=== PATIENT | male | born 1960 | race Caucasian/White ===

== ENCOUNTER 2024-10-03 18:28 | Emergency (ER) | payer SELFPAY ==
[2024-10-03 19:20] LABS: Absolute Basophils 0.1 K/uL (0-0.5); Absolute Monocytes 0.2 K/uL (0.1-1.3); Absolute Neutrophil 1.9 K/uL (1.8-8.0); Basophils % 1.7 % (0-1.3); Eosinophils % 1.4 % (0-4.4); Hematocrit 43.2 % (39.6-49.0); Hemoglobin 14.3 g/dL (13.6-17.9); Lymphocytes % 31.9 % (15.3-44.8); MCH 29.3 pg (27.0-35.0); MCHC 33.2 g/dL (32.0-36.0); MCV 88.2 fL (80-100); MPV 8.5 fL (7.6-11.3); Nucleated Red Blood Cells % 0.1 % (0-0); Platelets 124 thou/uL (152-406); Red Cell Distribution Width 15.7 % (12.1-15.2)
[2024-10-03 19:28] LABS: PT Prothrombin Time 12.5 SECONDS (9.4-12.5); Protime INR 1.12
[2024-10-03] MEDS ORDERED: LEVALBUTEROL 1.25 MG/3 ML NEB ONE (19:29)
[2024-10-03] MEDS ORDERED: levoFLOXacin 250 MG TAB ONE (19:29)
[2024-10-03] MEDS ORDERED: FAMOTIDINE 20 MG/2 ML VIAL IV ONE (19:29)
[2024-10-03] MEDS ORDERED: IPRATROPIUM BROM 0.5MG/2.5ML ONE (19:29)
[2024-10-03] MEDS ORDERED: METHYLPREDNISOLONE 125 MG INJ ONE (19:29)
[2024-10-03] MEDS ORDERED: NA CHLORIDE 0.9% 500 ML ONE (19:30)
[2024-10-03] MEDS ORDERED: NA CHLORIDE 0.9% 1,000 ML ONE (19:30)
--- NOTE | 2024-10-03 19:37 | RAD REPORT ---
EXAMINATION: ONE VIEW CHEST XR CLINICAL INDICATION: COPD TECHNIQUE: Frontal chest projection is submitted. Examination is limited by patient positioning and t echnique. COMPARISON: No prior exam. FINDINGS: COPD is present. 2-3 cm density medial apex on the right. The heart is normal in size. No displaced f ractures identified. IMPRESSION: 2-3 cm rounded density medial right apex concerning for mass. CT chest recommended.
[2024-10-03 19:41] LABS: Albumin 3.1 g/dL (3.4-5.0); Albumin/Globulin Ratio 0.6 (1.1-1.8); Bilirubin Direct 0.4 mg/dL (0-0.2); Bilirubin Indirect, Calculated 0.4 mg/dL (0.2-0.8); Bilirubin Total 0.8 mg/dL (0.2-1.0); Globulin 5.5 g/dL (2.3-3.5); Magnesium 2.4 mg/dL (1.6-2.4); Protein, Total 8.6 g/dL (6.4-8.2); Troponin High Sensitivity 8.7 pg/mL (<58.9)
[2024-10-03] MEDS ORDERED: LORazepam 2 MG/ML VIAL ONE (20:43)
--- NOTE | 2024-10-03 21:24 | RAD REPORT ---
EXAM: CT CHEST WITH CONTRAST CLINICAL INDICATION: abnormal CXR;Dyspnea TECHNIQUE: Routine CT scan of the chest with intravenous contrast. One or more of the following dose reduction techniques were used: Automated exposure control, adjustment of the mA and/or kV according to patient size, and/or iterative reconstruction. Unless otherwise specified, incidental fi ndings do not require dedicated imaging follow-up. COMPARISON: Plain radiograph same date FINDINGS: Moderate diffuse thyroid goiter. LUNGS: Irregular mass lesion in the medial right upper lobe noted measuring 5.2 x 3.7 cm. This extend s superiorly to the right apex where 15 mm component is present of the mass. Elsewhere mild COPD is present. Tiny nodules are seen subpleural location both lower lobes. PLEURA: No pleural effusion. No pneumothorax. MEDIASTINUM AND LYMPH NODES: No mediastinal mass or fluid collection. Normal size mediastinal, hilar, and axillary lymph nodes. OSSEOUS STRUCTURES AND CHEST WALL: Intact. UPPER ABDOMEN: 25 mm left adrenal mass. This is indeterminant. Moderate right hydronephrosis versus extrarenal pelvis. 19 mm cyst suspected in the liver. IMPRESSION: Irregular mass lesion medial right upper lobe measuring 5.2 cm compatible with neoplasm. Indeterminate left adrenal mass, adenoma versus metastasis. Moderate right hydronephrosis versus extrarenal pelvis. Prominent diffuse thyroid goiter.
--- NOTE | 2024-10-03 21:49 | RAD REPORT ---
EXAMINATION: CT ABDOMEN AND PELVIS WITH CONTRAST CLINICAL INDICATION: ABNORMAL CXR TECHNIQUE: CT abdomen and pelvis was performed, after the administration of IV contrast, as per [facility]. Axial, sagittal and coronal reconstructions were obtained. One or more of the following dose reduction techniques were used: Automated exposure control, adjustment of the mA and k V according to patient size, and iterative reconstruction. Unless otherwise specified, incidental findings do not require dedicated imaging follow-up. COMPARISON: No prior exam. FINDINGS: LOWER CHEST: The visualized lung bases are clear. LIVER: Small benign cyst is seen in the right lobe anteriorly. Grossly unremarkable gallbladder. SPLEEN: Normal size. No focal lesion. PANCREAS: No mass, ductal dilation, or pratik-pancreatic fluid. ADRENALS: 25 mm left adrenal mass. This is indeterminate. KIDNEYS: Large parapelvic cyst right kidney measuring 7.5 cm. No hydronephrosis. Additional right mariola al cyst superiorly measuring 4 cm. Symmetric contrast excretion by both kidneys into normal size ureters. GASTROINTESTINAL TRACT: No evidence of free air, significant intra-abdominal free fluid, bowel obstru ction or abscess. APPENDIX: Normal appendix. LYMPH NODES: No lymphadenopathy. MUSCULOSKELETAL: No acute or suspicious osseous abnormality. ADDITIONAL FINDINGS: Small fat-containing bilateral internal hernias. IMPRESSION: 25 mm indeterminate left adrenal mass. Follow-up nonemergent MRI adrenal protocol recommended. Large right parapelvic cyst. No hydronephrosis is present.
--- NOTE | 2024-10-03 22:08 | ER ---
Nurse's Notes [facility] Name: Claudio Adames II Age: 63 yrs Sex: Male : 1960 Arrival Date: 10/03/2024 Time: 18:28 Bed 3 Private MD: Diagnosis: Dyspnea, new pulmonary neoplasm, new renal neoplasm, hypothyroidism Presentation: 10/03 18:41 Chief complaint: EMS states: Toned out for dyspnea x 9 days. Coronavirus screen: Client jl7 presents with at least one sign or symptom that may indicate coronavirus-19. Ebola Screen: No symptoms or risks identified at this time. Initial Sepsis Screen: Does the patient meet any 2 criteria? No. Patient's initial sepsis screen is negative. Does the patient have a suspected source of infection? No. Patient's initial sepsis screen is negative. Risk Assessment: Do you want to hurt yourself or someone else? Patient reports no desire to harm self or others. Onset of symptoms is unknown. Care prior to arrival: None. 18:41 Method Of Arrival: EMS: [facility] 18:41 Acuity: ANTHONY 3 jl7 Triage Assessment: 18:43 General: Appears in no apparent distress. uncomfortable, Behavior is calm, cooperative, jl7 appropriate for age. Pain: Denies pain. Neuro: No deficits noted. Cardiovascular: Patient's skin is warm and dry. Respiratory: Reports shortness of breath at rest cough that is Airway is patent Respiratory effort is even, labored, Respiratory pattern is regular, symmetrical, Onset: The symptoms/episode began/occurred gradually, the patient has mild shortness of breath. Historical: - Allergies: 18:43 No Known Allergies; jl7 - Home Meds: 18:43 None [Active]; jl7 - PMHx: 18:43 None; jl7 - PSHx: 18:43 None; jl7 - Immunization history:: Adult Immunizations unknown. - Infectious Disease History:: Denies. - Social history:: Smoking status: Patient reports the use of cigarette tobacco products, smokes two packs cigarettes per day. Screenin:02 [facility] ED Fall Risk Assessment (Adult) History of falling in the last 3 months, mt4 including since admission No falls in past 3 months (0 pts) Confusion or Disorientation No (0 pts) Intoxicated or Sedated No (0 pts) Impaired Gait No (0 pts) Mobility Assist Device Used No (0 pt) Altered Elimination Yes (1 pt) Score/Fall Risk Level 0 - 2 = Low Risk. Abuse screen: Denies injuries from another. Nutritional screening: No deficits noted. Tuberculosis screening: No symptoms or risk factors identified. Exposure risk/Travel Screening: None identified. Assessment: 21:02 General: Appears in no apparent distress. comfortable, Behavior is calm, cooperative, mt4 appropriate for age. Pain: Complains of pain in back Pain currently is 6 out of 10 on a pain scale. Quality of pain is described as aching, sharp, Is intermittent. Neuro: Level of Consciousness is Oriented to [employer] are equal bilaterally Moves all extremities. Speech is normal, Facial symmetry appears normal. Cardiovascular: Rhythm is regular. Cardiovascular: Capillary refill < 3 seconds. Respiratory: Airway is patent Respiratory effort is even, Respiratory pattern is tachypnea Breath sounds are diminished bilaterally. GI: Abdomen is non-distended. : Denies burning with urination. Musculoskeletal: Capillary refill < 3 seconds, Range of motion: intact in all extremities. 10/04 01:44 Reassessment: report given to Meeta at [facility]. mt4 02:23 General: Appears in no apparent distress. comfortable, Behavior is calm, cooperative, mt4 appropriate for age. Respiratory: Airway is patent Respiratory effort is even, unlabored, Respiratory pattern is regular. Vital Signs: 10/03 18:41 BP 152 / 81; Pulse 73; Resp 20; Temp 97.9; Pulse Ox 97% on R/A; Weight 62.14 kg; Height jl7 5 ft. 6 in. ; Pain 0/10; 19:15 BP 122 / 70; Pulse 66; Resp 18; Temp 96.6(T); Pulse Ox 98% on R/A; Height 6 ft. 0 in. ; mt4 20:00 BP 148 / 77; Pulse 65; Resp 16 S; Pulse Ox 99% ; mt4 22:22 BP 108 / 73; Pulse 74; Resp 20; Pulse Ox 94% on R/A; mt4 23:00 BP 104 / 71; Pulse 74; Resp 17; Pulse Ox 95% ; mt4 10/04 00:30 BP 110 / 73; Pulse 95; Resp 16; Pulse Ox 95% on R/A; mt4 02:00 BP 149 / 84; Pulse 57; Resp 16; Pulse Ox 96% on R/A; mt4 12 18:41 Body Mass Index 22.11 (62.14 kg, 182.88 cm) jl7 12 18:41 Pain Scale: Adult jl7 Riesel Coma Score: 10/03 21:02 Eye Response: spontaneous(4). Motor Response: obeys commands(6). Verbal Response: mt4 oriented(5). Total: 15. 12 02:23 Eye Response: spontaneous(4). Motor Response: obeys commands(6). Verbal Response: mt4 oriented(5). Total: 15. ED Course: 12 18:33 Patient arrived in ED. bp 18:33 Greg Reynoso MD is Attending Physician. faby 18:43 Triage completed. jl7 18:43 Arm band placed on right wrist. jl7 18:52 Initial lab(s) drawn, by me, sent to lab. First set of blood cultures drawn by oh. jl7 19:01 Rehan House RN is Primary Nurse. bp 19:02 Attending Physician role handed off by Greg Reynoso MD sp3 19:02 Jevon Walker MD is Attending Physician. sp3 19:02 Inserted saline lock: 20 gauge in right antecubital area, using aseptic technique. jl7 Blood collected. Flushed with 10 mL NS. 19:02 Second set of blood cultures drawn EKG done, by ED staff, reviewed by Jevon Walker MD. jl7 19:12 Primary Nurse role handed off by Rehan House RN jl7 19:31 XRAY Chest (1 view) In Process Unspecified. EDMS 19:59 Bladimir Brito, RN is Primary Nurse. mt4 21:02 No apparent distress. Resting quietly. Awaiting CT Scan. mt4 21:02 Patient has correct armband on for positive identification. Call light in reach. Side mt4 rails up X 1. Door closed. Warm blanket given. Pillow given. Verbal reassurance given. Assisted with urinal. 21:02 No provider procedures requiring assistance completed. Patient maintains SpO2 mt4 saturation greater than 95% on room air. 21:19 Chest Abdomen Pelvis W Cont In Process Unspecified. EDMS 21:40 Abdomen In Process Unspecified. EDMS 22:06 Abbie Edmondson MD is Hospitalizing Provider. sp3 23:26 called to initiate transfer to [facility] spoke with Keivn. vk 10/04 00:02 per Kevin at [facility] Transfer [facility] patient is accepted currently waiting on room to be vk cleaned as soon as it is cleaned he will call with MOT. 00:54 called [facility] transfer center spoke with Migdalia regarding room she stated they have started vk cleaning room and will call as soon as it is done. 02:23 Provided Education on: on transfer . mt4 02:23 Assisted with urinal. mt4 02:23 Patient transferred, IV remains in place. mt4 Administered Medications: 10/03 19:57 Drug: MethylPrednisoLONE IVP 125 mg IVP once Route: IVP; Site: right antecubital; mt4 21:01 Follow up: Response: No adverse reaction mt4 19:57 Drug: Levalbuterol Inhalation 3.75 mg Inhalation once Route: Inhalation; mt4 21:01 Follow up: Response: No adverse reaction mt4 19:57 Drug: Ipratropium Inhalation Aerosol 0.5 mg Inhalation once Route: Inhalation; mt4 21:00 Follow up: Response: No adverse reaction mt4 19:57 Drug: LevOfloxacin PO 500 mg PO once Route: PO; mt4 21:00 Follow up: Response: No adverse reaction mt4 19:57 Drug: Famotidine IVP 20 mg IVP once; dilute with 10 mL 0.9% NaCl; give over 2 minutes mt4 Route: IVP; Site: right antecubital; 21:00 Follow up: Response: No adverse reaction mt4 19:58 Drug: NS 0.9% IV 500 ml 500 ml IV at 1 bolus once; to be given as a bolus over 30 mt4 minutes Volume: 500 ml; Route: IV; Rate: 1 bolus; Site: right antecubital; 21:01 Follow up: Response: No adverse reaction; IV Status: Completed infusion; IV Intake: mt4 500ml 19:58 Drug: NS 0.9% IV 1000 ml IV at 125 ml/hr continuous Route: IV; Rate: 125 ml/hr; Site: mt4 right antecubital; 21:01 Follow up: Response: No adverse reaction mt4 10/04 00:41 Follow up: IV Status: Infusion continued mt4 10/03 20:45 Drug: Ativan IVP 1 mg IVP once Route: IVP; Site: right antecubital; dd2 21:56 Follow up: Response: No adverse reaction mt4 Medication: 21:02 VIS not applicable for this client. mt4 Intake: 21:01 IV: 500ml; Total: 500ml. mt4 Outcome: 22:07 Decision to Hospitalize by Provider. sp3 23:30 ER care complete, transfer ordered by sp3 10/04 02:18 Transferred to [facility] [facility] Condition: stable Instructed on the need for admit, Demonstrated understanding of instructions, 02:24 Patient left the ED. mt4 Signatures: Dispatcher [employer] EDMS Greg Reynoso MD MD cha Leal, Jahala, RN RN jl7 Rehan House, RN RN Jevon Sy MD MD sp3 Brooke Becerra Molinec, RN RN mt4 CAROL MEJIAS RN RN dd2 Corrections: (The following items were deleted from the chart) 10/03 21:19 21:14 In radiology for Thorax W/ Con+CT.RAD.BRZ. EDMS EDMS
--- NOTE | 2024-10-03 22:08 | EDPHYS ---
Physician Documentation [facility] Name: Claudio Adames II Age: 63 yrs Sex: Male : 1960 Arrival Date: 10/03/2024 Time: 18:28 Bed 3 Private MD: ED Physician Jevon Walker HPI: 10/03 19:17 This 63 yrs old Male presents to ER via EMS with complaints of Shortness Of Breath. sp3 19:17 63-year-old male with no diagnosed medical problems who has not seen a physician in sp3 greater than 20 years now presents to the ED with chief complaint shortness of breath and chest pain spanning 2 weeks worsening today. Patient states he takes no medications has had no major surgeries. He denies any fever, cough, headache, neck pain, abdominal pain, nausea, vomiting, diarrhea, syncope, near syncope, neurological deficits or symptoms, trauma, travel history, known sick contacts, or any other signs or symptoms on ROS at this time.. Historical: - Allergies: 18:43 No Known Allergies; jl7 - Home Meds: 18:43 None [Active]; jl7 - PMHx: 18:43 None; jl7 - PSHx: 18:43 None; jl7 - Immunization history:: Adult Immunizations unknown. - Infectious Disease History:: Denies. - Social history:: Smoking status: Patient reports the use of cigarette tobacco products, smokes two packs cigarettes per day. ROS: 19:18 Constitutional: Negative for fever, chills, and weight loss, Eyes: Negative for injury, sp3 pain, redness, and discharge, ENT: Negative for injury, pain, and discharge, Neck: Negative for injury, pain, and swelling, Abdomen/GI: Negative for abdominal pain, nausea, vomiting, diarrhea, and constipation, Back: Negative for injury and pain, MS/Extremity: Negative for injury and deformity, Skin: Negative for injury, rash, and discoloration, Neuro: Negative for headache, weakness, numbness, tingling, and seizure, Psych: Negative for depression, anxiety, suicide ideation, homicidal ideation, and hallucinations, Allergy/Immunology: Negative for hives, rash, and allergies, Endocrine: Negative for neck swelling, polydipsia, polyuria, polyphagia, and marked weight changes, Hematologic/Lymphatic: Negative for swollen nodes, abnormal bleeding, and unusual bruising, 19:18 All other systems are negative, Exam: 19:18 Constitutional: This is a well developed, well nourished patient who is awake, alert, sp3 and in no acute distress. Head/Face: Normocephalic, atraumatic. Eyes: Pupils equal round and reactive to light, extra-ocular motions intact. Lids and lashes normal. Conjunctiva and sclera are non-icteric and not injected. Cornea within normal limits. Periorbital areas with no swelling, redness, or edema. ENT: Nares patent. No nasal discharge, no septal abnormalities noted. External auditory canals are clear. Oropharynx with no redness, swelling, or masses, exudates, or evidence of obstruction, uvula midline. Mucous membranes moist. Neck: Trachea midline, no thyromegaly or masses palpated, and no cervical lymphadenopathy. Supple, full range of motion without nuchal rigidity, or vertebral point tenderness. No Meningismus. Abdomen/GI: Soft, non-tender, with normal bowel sounds. No distension or tympany. No guarding or rebound. No evidence of tenderness throughout. Back: No spinal tenderness. No costovertebral tenderness. Full range of motion. Skin: Warm, dry with normal turgor. Normal color with no rashes, no lesions, and no evidence of cellulitis. MS/ Extremity: Pulses equal, no cyanosis. Neurovascular intact. Full, normal range of motion. Neuro: Awake and alert, GCS 15, oriented to person, place, time, and situation. Cranial nerves II-XII grossly intact. Motor strength 5/5 in all extremities. Sensory grossly intact. Cerebellar exam normal. Normal gait. Psych: Awake, alert, with orientation to person, place and time. Behavior, mood, and affect are within normal limits. 19:18 ECG was reviewed by the Attending Physician. EKG demonstrates normal sinus rhythm at 70 bpm with normal intervals, normal QRS, normal axis, nonspecific diffuse ST/T changes without evidence of acute ischemia. Vital Signs: 18:41 BP 152 / 81; Pulse 73; Resp 20; Temp 97.9; Pulse Ox 97% on R/A; Weight 62.14 kg; Height jl7 5 ft. 6 in. ; Pain 0/10; 19:15 BP 122 / 70; Pulse 66; Resp 18; Temp 96.6(T); Pulse Ox 98% on R/A; Height 6 ft. 0 in. ; mt4 20:00 BP 148 / 77; Pulse 65; Resp 16 S; Pulse Ox 99% ; mt4 22:22 BP 108 / 73; Pulse 74; Resp 20; Pulse Ox 94% on R/A; mt4 23:00 BP 104 / 71; Pulse 74; Resp 17; Pulse Ox 95% ; mt4 12 00:30 BP 110 / 73; Pulse 95; Resp 16; Pulse Ox 95% on R/A; mt4 02:00 BP 149 / 84; Pulse 57; Resp 16; Pulse Ox 96% on R/A; mt4 10/03 18:41 Body Mass Index 22.11 (62.14 kg, 182.88 cm) [facility] 10/03 18:41 Pain Scale: Adult [facility] Heri Coma Score: 10/03 21:02 Eye Response: spontaneous(4). Motor Response: obeys commands(6). Verbal Response: mt4 oriented(5). Total: 15. 12 02:23 Eye Response: spontaneous(4). Motor Response: obeys commands(6). Verbal Response: mt4 oriented(5). Total: 15. MDM: 10/03 18:33 Medical Screening Exam initiated faby 19:19 Data reviewed: vital signs, nurses notes, lab test result(s), EKG, radiologic studies. [facility] ED course: 63-year-old male with no known past medical history now presents with chest pain and shortness of breath. Differential diagnosis includes acute coronary syndrome, undiagnosed COPD, pneumonia, bronchitis, other pulmonary pathology, metabolic disturbance, among others. Workup included chest x-ray, EKG general labs and probable 23-hour observation given known history and ongoing symptoms.. 22:06 ED course: Patient with large lung mass consistent with neoplasm as well as left renal [facility] mass. TSH at 100. Will admit patient for cardiac evaluation and oncology referral.. 23:30 ED course: Patient now being transferred due to no oncology service available at this [address] Will transfer to [facility] for further consultation along with pulmonary.. 23:55 ED course: Discussed with medicine inpatient team at [facility] who graciously [facility] accepted this patient under observation status with further intervention as needed.. 10/03 18:36 Order name: Basic Metabolic Panel; Complete Time: 20:56 [facility] 10/03 18:36 Order name: CBC with Diff; Complete Time: 19:46 [facility] 10/03 18:36 Order name: LFT's; Complete Time: 20:56 [facility] 10/03 18:36 Order name: Magnesium; Complete Time: 20:56 [facility] 10/03 18:36 Order name: NT PRO-BNP; Complete Time: 20:56 [facility] 10/03 18:36 Order name: PT-INR; Complete Time: 19:46 [facility] 10/03 18:36 Order name: Troponin HS; Complete Time: 20:56 [facility] 10/03 18:36 Order name: Blood Culture Adult (2) [facility] 10/03 18:36 Order name: Lactate w/ 2H reflex if indic.; Complete Time: 20:56 [facility] 10/03 20:06 Order name: Thyroid Stimulating Hormone; Complete Time: 20:56 [facility] 10/03 20:42 Order name: T4 Free; Complete Time: 20:56 [facility] 10/03 18:36 Order name: XRAY Chest (1 view); Complete Time: 19:46 [facility] 10/03 21:19 Order name: Chest Abdomen Pelvis W Cont; Complete Time: 21:27 [facility] 10/03 21:40 Order name: Abdomen ; Complete Time: 22:05 [facility] 10/03 18:36 Order name: EKG; Complete Time: 18:36 [facility] 10/03 18:36 Order name: Cardiac monitoring; Complete Time: 19:06 [facility] 10/03 18:36 Order name: EKG - Nurse/Tech; Complete Time: 19:06 [facility] 10/03 18:36 Order name: IV Saline Lock; Complete Time: 19:06 [facility] 10/03 18:36 Order name: Labs collected and sent; Complete Time: 19:06 [facility] 10/03 18:36 Order name: O2 Per Protocol; Complete Time: 19:06 [facility] 10/03 18:36 Order name: O2 Sat Monitoring; Complete Time: 19:06 [facility] Administered Medications: 19:57 Drug: MethylPrednisoLONE IVP 125 mg IVP once Route: IVP; Site: right antecubital; mt4 21:01 Follow up: Response: No adverse reaction mt4 19:57 Drug: Levalbuterol Inhalation 3.75 mg Inhalation once Route: Inhalation; mt4 21:01 Follow up: Response: No adverse reaction mt4 19:57 Drug: Ipratropium Inhalation Aerosol 0.5 mg Inhalation once Route: Inhalation; mt4 21:00 Follow up: Response: No adverse reaction mt4 19:57 Drug: LevOfloxacin PO 500 mg PO once Route: PO; mt4 21:00 Follow up: Response: No adverse reaction mt4 19:57 Drug: Famotidine IVP 20 mg IVP once; dilute with 10 mL 0.9% NaCl; give over 2 minutes mt4 Route: IVP; Site: right antecubital; 21:00 Follow up: Response: No adverse reaction mt4 19:58 Drug: NS 0.9% IV 500 ml 500 ml IV at 1 bolus once; to be given as a bolus over 30 mt4 minutes Volume: 500 ml; Route: IV; Rate: 1 bolus; Site: right antecubital; 21:01 Follow up: Response: No adverse reaction; IV Status: Completed infusion; IV Intake: mt4 500ml 19:58 Drug: NS 0.9% IV 1000 ml IV at 125 ml/hr continuous Route: IV; Rate: 125 ml/hr; Site: mt4 right antecubital; 21:01 Follow up: Response: No adverse reaction mt4 12 00:41 Follow up: IV Status: Infusion continued mt4 10/03 20:45 Drug: Ativan IVP 1 mg IVP once Route: IVP; Site: right antecubital; dd2 21:56 Follow up: Response: No adverse reaction mt4 Disposition Summary: 10/03/24 23:30 Transfer Ordered Notes: Transfer Location: [facility] sp3 Reason: Higher level of care sp3 Condition: Stable(10/03/24 23:30) sp3 Problem: new(10/03/24 23:30) sp3 Symptoms: have worsened(10/03/24 23:30) sp3 [facility] mt4 Diagnosis - Dyspnea, new pulmonary neoplasm, new renal neoplasm, hypothyroidism sp3 Forms: - Medication Reconciliation Form sp3 - SBAR form sp3 Signatures: Dispatcher [employer] Greg White MD MD cha Leal, Jahala, RN RN jl7 Rachel Kim RN RN lg3 Jevon Walker MD MD sp3 Bladimir Brito, RN RN mt4 CAROL MEJIAS RN RN dd2 Corrections: (The following items were deleted from the chart) 18:36 18:36 BASIC METABOLIC PANEL+C.LAB.BRZ ordered. EDMS EDMS 18:36 18:36 CBC+H.LAB.BRZ ordered. EDMS EDMS 18:36 18:36 HEPATIC FUNCTION+C.LAB.BRZ ordered. EDMS EDMS 18:36 18:36 MAGNESIUM+C.LAB.BRZ ordered. EDMS EDMS 18:36 18:36 PROBNP+C.LAB.BRZ ordered. EDMS EDMS 18:36 18:36 PROTIME (+INR)+COAG.LAB.BRZ ordered. EDMS EDMS 18:36 18:36 Troponin High Sensitivity+C.LAB.BRZ ordered. EDMS EDMS 18:36 18:36 BLOOD CULTURE*+BA.LAB.BRZ ordered. EDMS EDMS 18:36 18:36 LACTATE+C.LAB.BRZ ordered. EDMS EDMS 20:05 18:55 THYROID STIMULAT HORMONE+C.LAB.BRZ ordered. EDMS EDMS 21:18 21:16 Abdomen Pelvis W Con+CT.RAD.BRZ ordered. EDMS EDMS 21:19 19:48 Thorax W/ Con+CT.RAD.BRZ ordered. EDMS EDMS 22:22 22:07 Telemetry/MedSurg (Inpatient) sp3 lg3 22:22 22:07 sp3 lg3 23:14 22:07 Inpatient Admission sp3 sp3 23:14 22:07 Abbie Edmondson sp3 sp3 23:14 22:07 Stable sp3 sp3 23:24 22:07 new sp3 lg3 23:24 22:07 have worsened sp3 lg3 23:24 22:07 Standard sp3 lg3 23:24 22:07 Dyspnea, chest pain, new neoplasm diagnosis, lung mass sp3 lg3 23:24 22:22 [facility] ER HOLD lg3 lg3 23:24 22:22 ERHOLD- lg3 lg3 10/04 02:24 12 23:[address] [facility] sp3 mt4
[2024-10-04 04:11] VITALS: TEMP 96.6
[2024-10-04 04:21] VITALS: BP 149/84; O2SAT 96
== END 2024-10-04 02:24 | disposition short-term general hospital (02) ==
LOC: ER 18:28
DX: C34.90 Malignant neoplasm of unspecified part of unspecified bronchus or lung (principal); C64.2 Malignant neoplasm of left kidney, except renal pelvis; E03.9 Hypothyroidism, unspecified
CPT/HCPCS: 36415; 71045; 71260; 74177; 80048; 80076; 83605; 83735; 83880; 84439; 84443; 84484; 85025; 85610; 87040; 96361; 96374; 96375; 99285; J2919; J7030; J7040; J7614; J7644

== ENCOUNTER 2024-10-05 22:52 | Inpatient (IN) | payer OTHER, SELFPAY ==
[2024-10-05 23:47] LABS: Absolute Lymphocytes (CBC) 1.2 K/uL (0.7-4.9); Absolute Monocytes 0.3 K/uL (0.1-1.3); Absolute Neutrophil 3.6 K/uL (1.8-8.0); Basophils % 0.4 % (0-1.3); Eosinophils % 0.5 % (0-4.4); Hemoglobin 13.2 g/dL (13.6-17.9); MCH 28.9 pg (27.0-35.0); MCHC 32.2 g/dL (32.0-36.0); MCV 89.8 fL (80-100); MPV 8.4 fL (7.6-11.3); Monocytes % 5.1 % (3.3-12.3); Platelets 153 thou/uL (152-406); RBC Red Blood Cell Count 4.57 M/uL (4.33-5.43); Red Cell Distribution Width 15.9 % (12.1-15.2)
[2024-10-05 23:50] LABS: PT Prothrombin Time 13.1 SECONDS (9.4-12.5); Protime INR 1.18
[2024-10-05] MEDS ORDERED: METHYLPREDNISOLONE 125 MG INJ ONE (23:58)
[2024-10-05] MEDS ORDERED: ONDANSETRON 4 MG/2 ML VIAL ONE (23:58)
[2024-10-05] MEDS ORDERED: ALBUTEROL 2.5 MG/3 ML NEB SOL ONE (23:58)
[2024-10-05] MEDS ORDERED: METOCLOPRAMIDE 10 MG/2mL INJ ONE (23:58)
[2024-10-05] MEDS ORDERED: MORPHINE 4 MG/ML SYR ONE (23:59)
[2024-10-06 00:13] LABS: Albumin/Globulin Ratio 0.7 (1.1-1.8); Anion Gap 8.3 mEq/L (5.0-15.0); Bilirubin Direct 0.2 mg/dL (0-0.2); Bilirubin Indirect, Calculated 0.5 mg/dL (0.2-0.8); Bilirubin Total 0.7 mg/dL (0.2-1.0); Globulin 4.6 g/dL (2.3-3.5); Potassium 3.3 mEq/L (3.5-5.1); Protein, Total 7.6 g/dL (6.4-8.2); Troponin High Sensitivity 47.2 pg/mL (<58.9)
--- NOTE | 2024-10-06 03:48 | ER ---
Nurse's Notes [facility] Name: Claudio Adames II Age: 63 yrs Sex: Male : 1960 Arrival Date: 10/05/2024 Time: 22:52 Bed 6 Private MD: Diagnosis: COPD/ Chronic obstructive pulmonary disease with (acute) exacerbation Presentation: 10/05 22:57 Chief complaint: EMS states: PT CALLED C/O SHORTNESS OF BREATH. PT RECENTLY TRANSFERRED dd2 TO [facility] FOR A NEWLY DX OF LUNG CANCER AND LEFT AMA REFUSING A BIOPSY. EMS REPORT O2 91% ON RA. Coronavirus screen: At this time, the client does not indicate any symptoms associated with coronavirus-19. Ebola Screen: No symptoms or risks identified at this time. Initial Sepsis Screen: Does the patient meet any 2 criteria? No. Patient's initial sepsis screen is negative. Does the patient have a suspected source of infection? No. Patient's initial sepsis screen is negative. Risk Assessment: Do you want to hurt yourself or someone else? Patient reports desire/thoughts of hurting themselves or someone else. Provider notified. Onset of symptoms is unknown. Care prior to arrival: Oxygen administered. via nasal cannula. 22:57 Method Of Arrival: EMS: [facility] dd2 22:57 Acuity: ANTHONY 3 dd2 Triage Assessment: 23:05 General: Appears uncomfortable, Behavior is cooperative, appropriate for age, anxious. dd2 Pain: Complains of pain in chest Pain does not radiate. Pain currently is 7 out of 10 on a pain scale. EENT: No deficits noted. No signs and/or symptoms were reported regarding the EENT system. Neuro: Level of Consciousness is awake, alert, obeys commands, Oriented to person, place, time, situation, Appropriate for age. Cardiovascular: Reports chest pain, shortness of breath, Heart tones S1 S2 present Patient's skin is warm and dry. Respiratory: Reports shortness of breath cough that is Airway is patent Respiratory effort is even, labored, Respiratory pattern is regular, symmetrical, Breath sounds with rhonchi bilaterally. the patient has mild shortness of breath. GI: No deficits noted. No signs and/or symptoms were reported involving the gastrointestinal system. Abdomen is flat, non-distended, Abd is soft and non tender. : No deficits noted. No signs and/or symptoms were reported regarding the genitourinary system. Derm: Skin with poor turgor Skin is dry, Skin temperature is warm. Musculoskeletal: Circulation, motion, and sensation intact. Range of motion: intact in all extremities. Historical: - Allergies: 23:05 No Known Allergies; dd2 - PMHx: 23:05 LUNG CANCER WITH METS ADRENAL GLANDS; dd2 - Immunization history:: Adult Immunizations not up to date. - Infectious Disease History:: Denies. - Social history:: Smoking status: Patient reports the use of cigarette tobacco products, unknown amount. - Family history:: not pertinent. Screenin/04 01:20 [facility] ED Fall Risk Assessment (Adult) History of falling in the last 3 months, dd2 including since admission No falls in past 3 months (0 pts) Confusion or Disorientation No (0 pts) Intoxicated or Sedated No (0 pts) Impaired Gait No (0 pts) Mobility Assist Device Used Yes (1 pt) Altered Elimination No (0 pt) Score/Fall Risk Level 0 - 2 = Low Risk Oriented to surroundings, Maintained a safe environment, Educated pt \\T\\ family on fall prevention, incl call for assistance when getting out of bed, Assessed \\T\\ reinforced patient's understanding of fall precautions, Hourly rounding (assess needs \\T\\ fall precautionary measures) done. Abuse screen: Denies threats or abuse. Nutritional screening: No deficits noted. Tuberculosis screening: No symptoms or risk factors identified. Assessment: 01:19 Reassessment: SEE TRIAGE ASSESSMENT FOR FULL ASSESSMENT. dd2 02:30 Reassessment: Patient appears in no apparent distress at this time. No changes from lg3 previously documented assessment. Patient and/or family updated on plan of care and expected duration. Pain level reassessed. Patient is alert, oriented x 3, equal unlabored respirations, skin warm/dry/pink. Vital Signs: 10/05 22:57 BP 152 / 80; Pulse 73; Resp 19; Pulse Ox 100% on 2 lpm NC; dd2 12 00:15 BP 150 / 68; Pulse 73; Resp 20 S; Pulse Ox 97% on 2 lpm NC; lg3 01:19 BP 111 / 77; Pulse 64; Resp 19 S; Pulse Ox 96% on 2 lpm NC; lg3 02:30 BP 136 / 80; Pulse 66; Resp 18 S; Pulse Ox 96% on 2 lpm NC; lg3 [place] Coma Score: 03:48 Eye Response: spontaneous(4). Motor Response: obeys commands(6). Verbal Response: sp4 oriented(5). Total: 15. ED Course: 10/05 22:53 Patient arrived in ED. rv1 22:54 Karson Pabon MD is Attending Physician. sp4 22:57 CAROL MEJIAS RN is Primary Nurse. dd2 23:05 Triage completed. dd2 23:05 Arm band placed on right wrist. Patient placed in an exam room, on a stretcher, on dd2 oxygen, on pulse oximetry. 23:21 Maintain EMS IV. Dressing intact. Good blood return noted. Site clean \\T\\ dry. Gauge \\T\\ lg 3 site: 18 LAC. Flushed with 10 mL NS. 23:21 Initial lab(s) drawn, by ED staff, sent to lab. EKG done, by ED staff, reviewed by lg3 Karson Pabon MD. 23:22 Basic Metabolic Panel Sent. lg3 23:22 CBC with Diff Sent. lg3 23:22 LFT's Sent. lg3 23:22 Magnesium Sent. lg3 23:22 Troponin HS Sent. lg3 23:35 No provider procedures requiring assistance completed. Oxygen administration via nasal dd2 cannula \\T\\ 2L/min. 23:51 XRAY Chest (1 view) In Process Unspecified. EDMS 12/04 01:20 Patient has correct armband on for positive identification. Bed in low position. Call dd2 light in reach. Side rails up X2. Client placed on continuous cardiac and pulse oximetry monitoring. NIBP monitoring applied. residential monitor on. Door closed. Noise minimized. Warm blanket given. Pillow given. Verbal reassurance given. 03:47 Kayode Carlos MD is Hospitalizing Provider. sp4 07:55 Provided Education on: admit. ko1 07:55 Patient admitted, IV remains in place. ko1 08:41 Primary Nurse role handed off by CAROL MEJIAS, RN bd 12:03 203 CM met with patient his Viviana at the bedside in the ED exam room. Patient ane identified by name and . Demographic sheet confirmed. PCP none, patient states he used to see . No MPOA. states he lives with his in a single story home. He reports that prior to admission, he performs ADLs independently. No HH, no home oxygen but patient requests home oxygen. No other medical services at this time. His preferred plan is to return home upon discharge and Viviana states she will be his transportation home. CM team will continue to follow and coordinate care. CM received order for home oxygen, order acknowledged at 1245. CM sent message to Dr. Marie to request nursing order to document RA saturation and RA saturation upon ambulation. Dr. Marie replied "yes". At this time, patient does not qualify for oxygen delivery system. CM team will continue to follow and coordinate care. 13:56 Trena Tsang, RN is Primary Nurse. ko1 Administered Medications: 00:17 Drug: Ondansetron IVP 4 mg IVP once; over 2 minutes Route: IVP; Site: left antecubital; lg3 00:26 Follow up: Response: No adverse reaction lg3 00:17 Drug: metoCLOPramide IVP 10 mg IVP once; over 1 to 2 minutes Route: IVP; Site: left lg3 antecubital; 00:26 Follow up: Response: No adverse reaction lg3 00:18 Drug: MethylPrednisoLONE IVP 125 mg IVP once Route: IVP; Site: left antecubital; lg3 00:27 Follow up: Response: No adverse reaction lg3 00:18 Drug: morphine IVP or IV 4 mg IVP once over 4 mins Route: IVP; Infused Over: 4 mins; lg3 Site: left antecubital; 00:26 Follow up: Response: No adverse reaction lg3 00:19 Drug: Albuterol Inhalation 2.5 mg Inhalation every 20 minutes x3 Route: Inhalation; lg3 00:27 Drug: Albuterol Inhalation 2.5 mg Inhalation every 20 minutes x3 Route: Inhalation; lg3 01:35 Drug: Albuterol Inhalation 2.5 mg Inhalation every 20 minutes x3 Route: Inhalation; lg3 04:00 Follow up: Response: No adverse reaction lg3 03:59 Drug: Albuterol Inhalation 2.5 mg Inhalation once Route: Inhalation; lg3 03:59 Drug: Dextromethorphan-Guaifenesin PO Liquid 10 mg-100 mg/5 mL 10 ml PO once Route: PO; lg3 07:00 Follow up: Response: No adverse reaction ko1 Medication: 07:55 VIS not applicable for this client. ko1 Outcome: 03:48 Decision to Hospitalize by Provider. sp4 07:55 Admitted to ER Hold. Please see [facility] for further documentation. ko1 07:55 Condition: stable 07:55 Instructed on the need for admit, 14:34 Patient left the ED. bc6 Signatures: Dispatcher [employer] EDMS Lupe Branch Lacie, RN RN lg3 Trena Tsang RN RN ko1 Nisha Atkinson Breana 6 Karson Pabon MD MD sp4 Sidra Card RN RN ane DAVIS, DIANA, RN RN dd2
--- NOTE | 2024-10-06 03:48 | EDPHYS ---
Physician Documentation [facility] Name: Claudio Adames II Age: 63 yrs Sex: Male : 1960 Arrival Date: 10/05/2024 Time: 22:52 Bed 6 Private MD: ED Physician Karson Pabon HPI: 10/05 22:54 This 63 yrs old Male presents to ER via Unassigned with complaints of short sp4 of breath . 10/06 03:48 63-year-old male who is recent diagnosis of a right upper lung mass, presents with sp4 moderate to severe shortness of breath. Patient states he has 50-year smoking history up to 2 packs a day.. Historical: - Allergies: 10/05 23:05 No Known Allergies; dd2 - PMHx: 23:05 LUNG CANCER WITH METS ADRENAL GLANDS; dd2 - Immunization history:: Adult Immunizations not up to date. - Infectious Disease History:: Denies. - Social history:: Smoking status: Patient reports the use of cigarette tobacco products, unknown amount. - Family history:: not pertinent. ROS: 10/06 03:48 Constitutional: Negative for fever, chills, and weight loss, positive shortness of sp4 breath, positive cough All other systems are negative, Exam: 03:20 Constitutional: This is a well developed, well nourished patient who is awake, alert, sp4 and in no acute distress. Head/Face: Normocephalic, atraumatic. Eyes: Pupils equal round and reactive to light, extra-ocular motions intact. Lids and lashes normal. Conjunctiva and sclera are not injected. Cornea within normal limits. Periorbital areas with no swelling, redness, or edema. ENT: Nares patent. No nasal discharge, no septal abnormalities noted. Tympanic membranes are normal and external auditory canals are clear. Oropharynx with no redness, swelling, or masses, exudates, or evidence of obstruction, uvula midline. Mucous membranes moist. Neck: Trachea midline, no thyromegaly or masses palpated, and no cervical lymphadenopathy. Supple, full range of motion without nuchal rigidity, or vertebral point tenderness. Chest/axilla: Normal chest wall appearance and motion. Nontender with no deformity. No lesions are appreciated. Cardiovascular: Regular rate and rhythm with a normal S1 and S2. No gallops, murmurs, or rubs. Normal PMI, no JVD. No pulse deficits. Respiratory: Lungs have equal breath sounds bilaterally, clear to auscultation and percussion. No rales, rhonchi Positive for diffuse expiratory wheezing Abdomen/GI: Soft, with normal bowel sounds. No distension or tympany. No guarding or rebound. No evidence of tenderness throughout. Back: No spinal tenderness. No costovertebral tenderness. Male : Normal genitalia with no discharge or lesions. Skin: Warm, dry with normal turgor. Normal color with no rashes, no lesions, and no evidence of cellulitis. MS/ Extremity: Pulses equal, no cyanosis. Neurovascular intact. Full, normal range of motion. Neuro: Awake and alert, GCS 15, oriented to person, place, time, and situation. Cranial nerves II-XII grossly intact. Motor strength 5/5 in all extremities. Sensory grossly intact. Psych: Awake, alert, with orientation to person, place and time. Behavior, mood, and affect are within normal limits 03:20 ECG was reviewed by the Attending Physician. EKG at 2325 sinus rhythm rate 64 Vital Signs: 10/05 22:57 BP 152 / 80; Pulse 73; Resp 19; Pulse Ox 100% on 2 lpm NC; dd2 10/06 00:15 BP 150 / 68; Pulse 73; Resp 20 S; Pulse Ox 97% on 2 lpm NC; lg3 01:19 BP 111 / 77; Pulse 64; Resp 19 S; Pulse Ox 96% on 2 lpm NC; lg3 02:30 BP 136 / 80; Pulse 66; Resp 18 S; Pulse Ox 96% on 2 lpm NC; lg3 [place] Coma Score: 03:48 Eye Response: spontaneous(4). Motor Response: obeys commands(6). Verbal Response: sp4 oriented(5). Total: 15. MDM: 10/05 22:55 Medical Screening Exam initiated sp4 10/06 03:17 ED course: EXAM DESCRIPTION: Chest Single View CLINICAL HISTORY:63 years Male, CHEST sp4 PAIN Comparison: None IMPRESSION: Hyperinflation. No focal consolidation. No pleural effusion. No pneumothorax. Cardiomediastinal silhouette is within normal limits. No acute osseous abnormality. Electronically signed by: Jori Vinson DO 10/05/2024 11:59. ED course: EXAMINATION: CTABDOMEN AND PELVIS WITH CONTRAST CLINICAL INDICATION: ABNORMAL CXR TECHNIQUE: CT abdomen and pelvis was performed, after the administration of IV contrast, as per department protocol. Axial, sagittal and coronal reconstructions were obtained. One or more of the following dose reduction techniques were used: Automated exposure control, adjustment of the mA and kV according to patient size, and iterative reconstruction. Unless otherwise specified, incidental findings do not require dedicated imaging follow-up. COMPARISON: No prior exam. FINDINGS: LOWER CHEST: The visualized lung bases are clear. LIVER: Small benign cyst is seen in the right lobe anteriorly. Grossly unremarkable gallbladder. SPLEEN: Normal size. No focal lesion. PANCREAS: No mass, ductal dilation, or pratik-pancreatic fluid. ADRENALS: 25 mm left adrenal mass. This is indeterminate. KIDNEYS: Large parapelvic cyst right kidney measuring 7.5 cm. No hydronephrosis. Additional right renal cyst superiorly measuring 4 cm. Symmetric contrast excretion by both kidneys into normal size ureters. GASTROINTESTINAL TRACT: No evidence of free air, significant intra-abdominal free fluid, bowel obstruction or abscess. APPENDIX: Normal appendix. LYMPH NODES: No lymphadenopathy. MUSCULOSKELETAL: No acute or suspicious osseous abnormality. Contrast ADDITIONAL FINDINGS: Small fat-containing bilateral internal hernias. IMPRESSION: 25 mm indeterminate left adrenal mass. Follow-up nonemergent MRI adrenal protocol recommended. Large right parapelvic cyst. No hydronephrosis is present. . ED course: EXAM: CT CHEST WITH CONTRAST CLINICAL INDICATION: abnormal CXR;Dyspnea TECHNIQUE: Routine CT scan of the chest with intravenous contrast. One or more of the following dose reduction techniques were used: Automated exposure control, adjustment of the mA and/or kV according to patient size, and/or iterative reconstruction. Unless otherwise specified, incidental findings do not require dedicated imaging follow-up. COMPARISON: Plain radiograph same date FINDINGS: Moderate diffuse thyroid goiter. LUNGS: Irregular mass lesion in the medial right upper lobe noted measuring 5.2 x 3.7 cm. This extends superiorly to the right apex where 15 mm component is present of the mass. Elsewhere mild COPD is present. Tiny nodules are seen subpleural location both lower lobes. PLEURA: No pleural effusion. No pneumothorax. MEDIASTINUM AND LYMPH NODES: No mediastinal mass or fluid collection. Normal size mediastinal, hilar, and axillary lymph nodes. OSSEOUS STRUCTURES AND CHEST WALL: Intact. UPPER ABDOMEN: 25 mm left adrenal mass. This is indeterminant. Moderate right hydronephrosis versus extrarenal pelvis. 19 mm cyst suspected in the liver. IMPRESSION: Irregular mass lesion medial right upper lobe measuring 5.2 cm compatible with neoplasm. Indeterminate left adrenal mass, adenoma versus metastasis. Moderate right hydronephrosis versus extrarenal pelvis. Prominent diffuse thyroid goiter. . 03:48 Differential diagnosis: CHF exacerbation, Chronic Obstructive Pulmonary Disease sp4 Myocardial Infarction pneumonia, Pneumothorax Psychogenic pulmonary edema. Data reviewed: vital signs, nurses notes, EMS record, old medical records, lab test result(s), EKG, radiologic studies. Consideration of Admission/Observation Patient was admitted/placed on observation. Escalation of care including admission/observation considered. Management of patient was discussed with the following: Hospitalist: Terrance GILES . ED course: Patient oxygenation to 89% on room air. Will request admission for management of likely COPD exacerbation. Patient has not been properly diagnosed with COPD. However considering long smoking history patient has likely advanced COPD. Right upper lung mass can be assessed on outpatient basis.. 10/05 22:55 Order name: Basic Metabolic Panel; Complete Time: 03:15 sp4 10/05 22:55 Order name: CBC with Diff; Complete Time: 03:15 sp4 10/05 22:55 Order name: LFT's; Complete Time: 03:15 sp4 10/05 22:55 Order name: Magnesium; Complete Time: 03:16 sp4 10/05 22:55 Order name: NT PRO-BNP; Complete Time: 03:16 sp4 10/05 22:55 Order name: PT-INR; Complete Time: 03:15 sp4 10/05 22:55 Order name: Troponin HS; Complete Time: 03:16 sp4 10/06 04:32 Order name: Urinalysis w/ reflexes; Complete Time: 06:00 EDMS 10/06 04:33 Order name: CBC with Automated Diff EDMS 10/06 04:33 Order name: CBC with Automated Diff EDMD 10/06 04:33 Order name: Comprehensive Metabolic Panel EDMD 10/06 04:33 Order name: Comprehensive Metabolic Panel EDMD 10/05 22:55 Order name: XRAY Chest (1 view); Complete Time: 06:00 sp4 10/06 04:34 Order name: Case Management Consult EDMD 10/05 22:55 Order name: Cardiac monitoring; Complete Time: 23:18 sp4 10/05 22:55 Order name: EKG - Nurse/Tech; Complete Time: 23:18 sp4 10/05 22:55 Order name: IV Saline Lock; Complete Time: 23:22 sp4 10/05 22:55 Order name: Labs collected and sent; Complete Time: 23:22 sp4 10/05 22:55 Order name: O2 Per Protocol; Complete Time: 23:10 sp4 10/05 22:55 Order name: O2 Sat Monitoring; Complete Time: 23:10 sp4 EC:20 Rate is 64 beats/min. Rhythm is regular, Normal Sinus Rhythm. QRS [place] is Normal. AL sp4 interval is normal. QRS interval is normal. QT interval is normal. No Q waves. T waves are Normal. No ST changes noted. Clinical impression: Normal ECG. Interpreted by me. Reviewed by me. Administered Medications: 00:17 Drug: Ondansetron IVP 4 mg IVP once; over 2 minutes Route: IVP; Site: left antecubital; lg3 00:26 Follow up: Response: No adverse reaction lg3 00:17 Drug: metoCLOPramide IVP 10 mg IVP once; over 1 to 2 minutes Route: IVP; Site: left lg3 antecubital; 00:26 Follow up: Response: No adverse reaction lg3 00:18 Drug: MethylPrednisoLONE IVP 125 mg IVP once Route: IVP; Site: left antecubital; lg3 00:27 Follow up: Response: No adverse reaction lg3 00:18 Drug: morphine IVP or IV 4 mg IVP once over 4 mins Route: IVP; Infused Over: 4 mins; lg3 Site: left antecubital; 00:26 Follow up: Response: No adverse reaction lg3 00:19 Drug: Albuterol Inhalation 2.5 mg Inhalation every 20 minutes x3 Route: Inhalation; lg3 00:27 Drug: Albuterol Inhalation 2.5 mg Inhalation every 20 minutes x3 Route: Inhalation; lg3 01:35 Drug: Albuterol Inhalation 2.5 mg Inhalation every 20 minutes x3 Route: Inhalation; lg3 04:00 Follow up: Response: No adverse reaction lg3 03:59 Drug: Albuterol Inhalation 2.5 mg Inhalation once Route: Inhalation; lg3 03:59 Drug: Dextromethorphan-Guaifenesin PO Liquid 10 mg-100 mg/5 mL 10 ml PO once Route: PO; lg3 07:00 Follow up: Response: No adverse reaction ko1 Disposition Summary: 10/06/24 03:48 Hospitalization Ordered Notes: Hospitalization Status: Inpatient Admission sp4 Provider: Kayode Carlos sp4 Condition: Fair sp4 Problem: new sp4 Symptoms: have improved sp4 Bed/Room Type: Standard sp4 Location: Telemetry/MedSurg (Inpatient)(10/06/24 13:34) bd Room Assignment: 205(10/06/24 13:34) bd Diagnosis - COPD/ Chronic obstructive pulmonary disease with (acute) exacerbation sp4 Forms: - Medication Reconciliation Form sp4 - SBAR form sp4 - Leadership Thank You Letter sp4 Signatures: Dispatcher [employer] EDMS Lupe Branch Lacie RN RN lg3 Mona Johnson RN RN vc1 Karson Pabon MD MD sp4 CAROL MEJIAS RN RN dd2 Trena Tsang RN ko1 Corrections: (The following items were deleted from the chart) 10/05 22:55 22:55 BASIC METABOLIC PANEL+C.LAB.BRZ ordered. EDMS EDMS 22:55 22:55 CBC+H.LAB.BRZ ordered. EDMS EDMS 22:55 22:55 HEPATIC FUNCTION+C.LAB.BRZ ordered. EDMS EDMS 22:55 22:55 MAGNESIUM+C.LAB.BRZ ordered. EDMS EDMS 22:55 22:55 PROBNP+C.LAB.BRZ ordered. EDMS EDMS 22:55 22:55 PROTIME (+INR)+COAG.LAB.BRZ ordered. EDMS EDMS 22:55 22:55 Troponin High Sensitivity+C.LAB.BRZ ordered. EDMS EDMS 22:56 22:56 Chest Single View+RAD.RAD.BRZ ordered. EDMD EDMS 10/06 05:02 03:48 Telemetry/MedSurg (Inpatient) sp4 vc1 05:02 03:48 sp4 vc1 13:34 05:[address] [facility] ER HOLD vc1 bd 13:34 05:02 ERHOLD- vc1 bd
[2024-10-06] MEDS ORDERED: ALBUTEROL 2.5 MG/3 ML NEB SOL ONE ×2 (03:53→08:22)
[2024-10-06] MEDS ORDERED: GUAIFENESIN/DM 5 ML UCUP ONE (03:54)
--- NOTE | 2024-10-06 04:05 | P.HP ---
Certification for Inpatient Patient admitted to: Inpatient With expected LOS: >2 Midnights Practitioner: I am a practitioner with admitting privileges, knowledge of patient current condition, hospital course, and medical plan of care. Services: Services provided to patient in accordance with Admission requirements found in Title 42 Section 412.3 of the Code of Federal Regulations Patient History Date of Service: 10/06/24 Reason for admission: SOB History of Present Illness: 63 yrs old Male with past medical history of COPD, smoker, right upper lung mass came to ER with shortness of breath. He smokes 2 packs a day with 50 years smoking history. He was recently been seen in the ER and was transferred to [facility] for further workup but he signed out AMA. Came here with shortness of breath with hypoxia. Started 2 days ago and has been progressively getting worse. Denies any chest pain. No fever or chills. No nausea vomiting or diarrhea. Patient was assessed in the ER and was admitted for further management of acute COPD exacerbation and hypoxic respiratory failure Allergies No Known Allergies Allergy (Verified 10/06/24 04:35) Home medications list reviewed: Yes - Past Medical/Surgical History Past Medical History: Reviewed- Non-Contributory -: COPD -: Lung mass Past Surgical History: Reviewed- Non-Contributory - Family History Family History: Reviewed- Non-Contributory - Social History Smoking Status: Current every day smoker Review of Systems 10-point ROS is otherwise unremarkable Physical Examination - Vital Signs Temperature: 97.2 F Blood Pressure: 132/76 Pulse: 82 Respirations: 18 Pulse Ox (%): 94 - Physical Exam General: Alert, Oriented x3, Cachectic, Moderate distress HEENT: Atraumatic, Normocephalic Neck: Supple Respiratory: Diminished, Crackles/rales, Expiratory wheezes Cardiovascular: Regular rate/rhythm, Normal S1 S2 Capillary refill: <2 Seconds Gastrointestinal: Soft and benign, W/out hepatosplenomegaly Musculoskeletal: No swelling Integumentary: No rashes Neurological: Normal speech, Normal strength at 5/5 x4 extr, Cranial nerves 3-12 intact, Normal reflexes 2+ - Studies Laboratory Data (last 24 hrs) 10/05/24 10/05/24 10/05/24 23:18 23:18 23:18 WBC 5.00 Hgb 13.2 L Hct 41.0 Plt Count 153 PT 13.1 H INR 1.18 Sodium 136 Potassium 3.3 L BUN 11 Creatinine 1.19 Glucose 93 Magnesium 2.0 Total Bilirubin 0.7 AST 32 ALT 21 Alkaline Phosphatase 58 Assessment and Plan - Problems (Diagnosis) (1) COPD exacerbation Current Visit: Yes Status: Acute - Plan COPD exacerbation Monitor closely on telemetry Started on bronchodilators Chest x-ray findings noted Pulmonology consult if not better in the a.m. Acute hypoxic respiratory failure Oxygen supplementation Will titrate to keep saturation more than 92 Case management consult for home O2 Lung mass with secondaries possibly Advise follow-up with heme oncology Smoking Advised cessation GI/DVT prophylaxis Advanced directive full code Discharge Plan: Home Plan to discharge in: 48 Hours - Advance Directives Does patient have a Living Will: No Does patient have a Durable POA for Healthcare: No - Code Status/Comfort Care Code Status: Full Code Time Spent Managing Pts Care (In Minutes): 48
[2024-10-06] MEDS ORDERED: ALBUTEROL 2.5 MG/3 ML NEB SOL NEB PRN (04:27)
[2024-10-06] MEDS ORDERED: ONDANSETRON 4 MG/2 ML VIAL IV PRN (04:27)
[2024-10-06] MEDS ORDERED: METHYLPREDNISOLONE 125 MG INJ ONE ×2 (05:19→12:35)
[2024-10-06] MEDS: METHYLPREDNISOLONE 125 MG INJ IV SCH (05:22)
--- NOTE | 2024-10-06 05:58 | RAD REPORT ---
EXAM DESCRIPTION: Chest Single View CLINICAL HISTORY: 63 years Male, CHEST PAIN Comparison: None IMPRESSION: Hyperinflation. No focal consolidation. No pleural effusion. No pneumothorax. Cardiomediastinal silhouette is within normal limits. No acute osseous abnormality. Electronically signed by: Jori Vinson DO 10/05/2024 11:59 PM [employer]OX [employer] 9 Due to temporary technical issues with the [employer] reporting system, reports are being nolvia d by the in-house radiologist without review as a courtesy to ensure prompt reporting the interpreting radiologist is fully responsible for the content of the report. Transcribed Date/Time: 10/06/2024 5:58 AM
[2024-10-06 05:59] LABS: Specific Gravity 1.012 (1.005-1.030); Sqamous Epithelial None Seen /HPF (None Seen); Urine Bacteria None Seen /HPF (<20); Urine Bilirubin NEGATIVE (Negative); Urine Blood Trace (Negative); Urine Clarity Clear (Clear); Urine Color Light-Yellow (Yellow); Urine Culture Reflex Order NOT NEEDED; Urine Glucose NEGATIVE (Negative); Urine Ketones NEGATIVE (Negative); Urine Microscopic Reflex YN ORDER UMIC; Urine Mucus Slight /HPF (None Seen); Urine Nitrite NEGATIVE (Negative); Urine Protein TRACE (Negative); Urine RBC <5 /HPF (None Seen); Urine Urobilinogen Normal (Normal); Urine WBC <5 /HPF (<5); Urine pH 7.5 (5.0-7.0)
[2024-10-06] MEDS: FLU (Fluarix Triv) TS24-25(6MOS UP)/PF 45 MCG/0.5 ML Syringe IM ONE (07:45)
[2024-10-06] MEDS: PNEUMOCOCCAL VACCINE 0.5 ML IMVAC ONE (08:00)
[2024-10-06] MEDS ORDERED: ENOXAPARIN 40 MG/0.4 ML SQ ONE (08:03)
[2024-10-06] MEDS: ENOXAPARIN 40 MG/0.4 ML SQ SCH (08:11)
[2024-10-06] MEDS ORDERED: IPRATROPIUM BROM 0.5MG/2.5ML ONE (08:22)
[2024-10-06] MEDS: ALBUTEROL 2.5 MG/3 ML NEB SOL NEB SCH (08:24)
[2024-10-06] MEDS: IPRATROPIUM BROM 0.5MG/2.5ML NEB SCH (08:24)
--- NOTE | 2024-10-06 11:14 | P.PN ---
Date of Service: 10/07/24 Subjective: Feeling better today No events overnight desat ~88-89% on RA after ambulating. afebrile ROS: 10 point ROS as noted above, otherwise negative Physical Exam: GEN: Alert, NAD CV: Regular rate and rhythm, no edema Pulm: Nonlabored respirations on 2L, diminished bilaterally, expiratory wheeze ABD: soft, nontender, nondistended Neuro: Normal speech, normal affect Problem List: Acute hypoxic respiratory failure secondary to acute on chronic COPD exacerbation 5.2 cm RUL mass, concerning for malignancy Left Adrenal mass Tobacco use on admission, presents with worsening shortness of breath for ~2 days. Previously seen in ER 10/03, was transferred to [facility] but ended up leaving AMA. CT chest done in ER 10/03: 5.2 irregular right upper lobe mass. Indeterminate left adrenal mass concerning for adenoma vs metastasis. Prominent diffuse thyroid goiter. CT abdomen (10/03): 25mm indeterminate left adrenal mass, large right parapelvic cyst 7.5 cm. No hydro. Reports smoking history of 50+ years. ~2 packs/day CXR negative. continue oral prednisone, iris Barrera, pulm consulted. dulera inhaler added 10/06 recommended outpatient bronchoscopy to further eval lung mass. 10/07 Patient desat to ~88-89% on RA after ambulation. ss/cm consulted for possible home O2 setup VTE: Lovenox Code: Full Dispo: Home, likely tomorrow pending home O2 and improvement Time Spent Managing Pts Care (In Minutes): 55
[2024-10-06] MEDS: POTASSIUM CL SA 10 MEQ TAB PO ONE (15:19)
--- NOTE | 2024-10-06 15:29 | P.CNS ---
Date of Consult: 10/06/24 Reason for Consult: COPD exacerbation Chief Complaint: SOB History of Present Illness: Patient is 63 years of age has been complaining of progressive worsening dyspnea and is unable to ambulate but a few feet and was admitted here from the emergency room and later transferred to [facility] a biopsy of the right upper lobe lung mass discharged home on albuterol and levofloxacin his continued to get worse complains of some difficulty swallowing and is a former 2 pack a day smoker is any history of weight loss or hemoptysis Allergies No Known Allergies Allergy (Verified 10/06/24 04:35) - Past Medical/Surgical History -: COPD -: Lung mass - Social History Smoking Status: Current every day smoker Place of Residence: Home Review of Systems 10-point ROS is otherwise unremarkable General: Weakness Respiratory: Shortness of Breath Physical Examination Temp Pulse Resp BP Pulse Ox 97.4 F 71 18 139/75 97 10/06/24 12:00 10/06/24 12:00 10/06/24 12:00 10/06/24 12:00 10/06/24 12:00 General: Alert, Oriented x3 Neck: Supple Respiratory: Clear to auscultation bilaterally, Diminished Cardiovascular: No edema, Normal pulses, Regular rate/rhythm Gastrointestinal: Soft and benign Laboratory Data (last 24 hrs) 10/05/24 10/05/24 10/05/24 23:18 23:18 23:18 WBC 5.00 Hgb 13.2 L Hct 41.0 Plt Count 153 PT 13.1 H INR 1.18 Sodium 136 Potassium 3.3 L BUN 11 Creatinine 1.19 Glucose 93 Magnesium 2.0 Total Bilirubin 0.7 AST 32 ALT 21 Alkaline Phosphatase 58 - Problems (1) COPD exacerbation Current Visit: Yes Status: Acute Plan: Patient is 63 years of age I presume she has he has severe obstructive pulmonary disease with an exacerbation heavy smoker 2 packs a day plan to maximize his bronchodilator therapy he will benefit from a Trelegy or Breztri in addition to prednisone for at least 10 days 10 mg twice a day also had a macrolide inflammatory purposes labs chemistries reviewed mild hypokalemia oxygenation satisfactory (2) Lung cancer Current Visit: Yes Status: Acute Plan: Patient has a 5.2 cm apical posterior right upper lobe lung mass most likely lung cancer and to schedule him as an outpatient bronchoscopy discussed with the patient the risk of benefits of bronchoscopy include bleeding infection and lung collapse and he clearly agrees with the Qualifiers: Laterality: right
[2024-10-06] MEDS: ACETAMINOPHEN 325 MG TABLET PO PRN (19:09)
[2024-10-06] MEDS: predniSONE 20 MG TAB PO SCH (20:33)
[2024-10-06] MEDS: DULERA 200/5 (MOMETASONE/FORMOTEROL) INHALER IH SCH (20:34)
[2024-10-07 06:06] LABS: Absolute Lymphocytes (CBC) 0.9 K/uL (0.7-4.9); Absolute Monocytes 0.3 K/uL (0.1-1.3); Absolute Neutrophil 6.1 K/uL (1.8-8.0); Basophils % 0.4 % (0-1.3); Eosinophils % 0.1 % (0-4.4); Hematocrit 38.6 % (39.6-49.0); Hemoglobin 12.8 g/dL (13.6-17.9); Lymphocytes % 12.2 % (15.3-44.8); MCH 29.2 pg (27.0-35.0); MCHC 33.2 g/dL (32.0-36.0); MCV 87.9 fL (80-100); MPV 8.3 fL (7.6-11.3); Monocytes % 3.8 % (3.3-12.3); Neutrophils % 83.5 % (41.7-73.7); Platelets 168 thou/uL (152-406); RBC Red Blood Cell Count 4.39 M/uL (4.33-5.43); Red Cell Distribution Width 15.9 % (12.1-15.2)
[2024-10-07 06:25] LABS: Albumin 2.9 g/dL (3.4-5.0); Albumin/Globulin Ratio 0.7 (1.1-1.8); Bilirubin Total 0.7 mg/dL (0.2-1.0); Globulin 4.3 g/dL (2.3-3.5); Protein, Total 7.2 g/dL (6.4-8.2)
[2024-10-07 08:32] LABS: Magnesium 2.3 mg/dL (1.6-2.4)
--- NOTE | 2024-10-07 13:23 | P.PN ---
Subjective Date of Service: 10/07/24 Chief Complaint: COPD exacerbation Subjective: Improving (Doign better Awaiting O2) Review of Systems General: Weakness Respiratory: Shortness of Breath Physical Examination - Vital Signs Temperature: 97.5 F Blood Pressure: 132/69 Pulse: 55 Respirations: 17 Pulse Ox (%): 95 - Physical Exam General: Alert, Oriented x3, Acute distress Respiratory: Clear to auscultation bilaterally, Diminished Cardiovascular: No edema, Regular rate/rhythm, Normal S1 S2 Assessment And Plan - Current Problems (Diagnosis) (1) COPD exacerbation Current Visit: Yes Status: Acute Plan: Pt has presumed severe COPD. Stable for discharge on pred beonchodilators and pred f/u with me next week (2) Lung cancer Current Visit: Yes Status: Acute Plan: Patient has a 5.2 cm apical posterior right upper lobe lung mass most likely lung cancer and to schedule him as an outpatient bronchoscopy discussed with the patient the risk of benefits of bronchoscopy include bleeding infection and lung collapse and he clearly agrees with the Qualifiers: Laterality: right
[2024-10-08 06:26] VITALS: BMI 22.0
--- NOTE | 2024-10-08 08:37 | P.DS ---
Admission Date: 10/06/24 Discharge Date: 10/08/24 Disposition: ROUTINE DISCHARGE Discharge Condition: FAIR Reason for Admission: COPD exacerbation Consultations: Pulmonology - Dr. Barrera Brief History of Present Illness: 63yo M, PMH: COPD, smoker, right upper lung mass Patient came to ER with shortness of breath. He smokes 2 packs a day with 50 years smoking history. He was recently been seen in the ER and was transferred to [facility] for further workup but he signed out AMA. Came here with shortness of breath with hypoxia. Started 2 days ago and has been progressively getting worse. Denies any chest pain. No fever or chills. No nausea vomiting or diarrhea. Patient was assessed in the ER and was admitted for further management of acute COPD exacerbation and hypoxic respiratory failure Hospital Course: Problem List: Acute hypoxic respiratory failure secondary to acute on chronic COPD exacerbation 5.2 cm RUL mass, concerning for malignancy Left Adrenal mass Hypothyroidism Tobacco use Physician discharge instructions: Patient presented with worsening shortness of breath for ~2 days secondary to acute on chronic COPD exacerbation. Chest xray was negative for any acute findings. He felt improvement with steroids, nebulizer treatments. Patient is to complete short course of oral pre dnisone on discharge. rodo Ibarra was consulted and recommended short course of oral prednisone in addition to starting dulera inhaler. Follow up with him in office for further management. He was noted to desat to ~88-89% after ambulation on 10/07, qualifying patient for home oxygen. Concentrator and oxygen tanks delivered to patient room prior to discharge. Patient was feeling better, breathing more comfortably, afebrile without leukocytosis, and deemed stable for discharge home with home oxygen. Of note, patient was recently seen in ER 10/03, was transferred to [facility] but ended up refusing biopsy and left AMA. CT at the time had noted a 5.2 apical posterior right upper lobe lung mass concerning for cancer. Rodo Ibarra, was consulted and recommended following up with him in near future for outpatient bronchoscopy to further evaluate the mass to which patient was agreeable to. Please call to schedule and make appointment. His TSH was noted to be elevated (100) when checked on ER visit 10/03. He was seen by endocrinology at [facility] a few days ago and had been recommended starting Levothyroxine 50 mcg. Patient reported having prescription in hand already. Discussed with patient importance of taking medications as prescribed and to not miss a dose. Recommend repeating thyroid studies in 6-8 weeks. Follow up with endocrinology for further work up and to consider outpatient CT to further eval adrenal mass. Medications: Prednisone 20 mg for 4 more days Dulera inhaler Pepcid daily for 1 month continue other home medications (synthroid 50mcg, albuterol inhaler) as previously/recently prescribed. Follow up: PCP 3-5 days Pulmonology in 1-2 weeks (Dr. Barrera) Oncology 2-4 weeks (Dr. Avila) Endocrinology 2-4 weeks please call to schedule / confirm appointments Physical Exam: GEN: Alert, NAD CV: Regular rate and rhythm, no edema Pulm: Nonlabored respirations on room air, clear bilaterally ABD: soft, nontender, nondistended Neuro: Normal speech, normal affect Vital Signs/Physical Exam: Temp Pulse Resp BP Pulse Ox 98.5 F 60 18 140/68 97 10/08/24 04:00 10/08/24 04:00 10/08/24 04:00 10/08/24 04:00 10/08/24 04:00 Laboratory Data at Discharge: WBC 7.30 thou/uL (4.3-10.9) 10/07/24 05:55 Hgb 12.8 g/dL (13.6-17.9) L 10/07/24 05:55 Hct 38.6 % (39.6-49.0) L 10/07/24 05:55 Plt Count 168 thou/uL (152-406) 10/07/24 05:55 PT 13.1 SECONDS (9.4-12.5) H 10/05/24 23:18 INR 1.18 10/05/24 23:18 Sodium 132 mEq/L (136-145) L 10/07/24 05:55 Potassium 4.0 mEq/L (3.5-5.1) 10/07/24 05:55 BUN 14 mg/dL (7-18) 10/07/24 05:55 Creatinine 0.98 mg/dL (0.70-1.30) 10/07/24 05:55 Glucose 119 mg/dL (74-106) H 10/07/24 05:55 Phosphorus 3.0 mg/dL (2.5-4.9) 10/07/24 05:55 Magnesium 2.3 mg/dL (1.6-2.4) 10/07/24 05:55 Total Bilirubin 0.7 mg/dL (0.2-1.0) 10/07/24 05:55 AST 19 U/L (15-37) 10/07/24 05:55 ALT 20 U/L (16-61) 10/07/24 05:55 Alkaline Phosphatase 52 U/L (45-117) 10/07/24 05:55 Home Medications: Mometasone/Formoterol [Dulera 200 Mcg/5 Mcg Inhaler] 2 puff IH BID inhaler 10/08/24 predniSONE [Prednisone*] 20 mg PO BID 4 Days #8 tab 10/08/24 New Medications: predniSONE [Prednisone*] 20 mg PO BID 4 Days #8 tab Physician Discharge Instructions: Physician discharge instructions: Patient presented with worsening shortness of breath for ~2 days secondary to acute on chronic COPD exacerbation. Chest xray was negative for any acute findings. He felt improvement with steroids, nebulizer treatments. Patient is to complete short course of oral prednisone on discharge. Dr. Barrera pulzunilda was consulted and recommended short course of oral prednisone in addition to starting dulera inhaler. Follow up with him in office for further management. He was noted to desat to ~88-89% after ambulation on 10/07, qualifying patient for home oxygen. Concentrator and oxygen tanks delivered to patient room prior to discharge. Patient was feeling better, breathing more comfortably, afebrile without leukocytosis, and deemed stable for discharge home with home oxygen. Of note, patient was recently seen in ER 10/03, was transferred to [facility] but ended up refusing biopsy and left AMA. CT at the time had noted a 5.2 apical posterior right upper lobe lung mass concerning for cancer. Dr. Barrera Pulzunilda, was consulted and recommended following up with him in near future for outpatient bronchoscopy to further evaluate the mass to which patient was agreeable to. Please call to schedule and make appointment. His TSH was noted to be elevated (100) when checked on ER visit 10/03. He was seen by endocrinology at [facility] a few days ago and had been recommended starting Levothyroxine 50 mcg. Patient reported having prescription in hand already. Discussed with patient importance of taking medications as prescribed and to not miss a dose. Recommend repeating thyroid studies in 6-8 weeks. Follow up with endocrinology for further work up and to consider outpatient CT to further eval adrenal mass. Medications: Prednisone 20 mg for 4 more days Dulera inhaler Pepcid daily for 1 month continue other home medications (synthroid 50mcg, albuterol inhaler) as previously/recently prescribed. Follow up: PCP 3-5 days Pulmonology in 1-2 weeks (Dr. Barrera) Oncology 2-4 weeks (Dr. Avila) Endocrinology 2-4 weeks please call to schedule / confirm appointments Followup: Cody Barrera MD [ACTIVE - CAN ADMIT] - (To make outpatient appointment for bronchoscopy) Jorge Avila MD [ACTIVE - CAN ADMIT] - (Follow up after Bronchoscopy/Biopsy.) NONE,NONE [Primary Care Provider] - Time spent managing pt's care (in minutes): 45
[2024-10-08 08:43] VITALS: BP 119/61; TEMP 97.4
[2024-10-08 10:01] VITALS: O2SAT 93
== END 2024-10-08 09:56 | disposition home or self-care (01) | DRG 189 ==
LOC: ER 22:52 → ERHOLD 10-06 04:27 → 2ND 10-06 14:27
PROVIDERS: ADMIT Family Medicine; ATTEND Hospitalist
DX: J96.01 Acute respiratory failure with hypoxia (principal); J44.1 Chronic obstructive pulmonary disease with (acute) exacerbation; C79.70 Secondary malignant neoplasm of unspecified adrenal gland; R64 Cachexia; C34.91 Malignant neoplasm of unspecified part of right bronchus or lung; E87.6 Hypokalemia; E27.9 Disorder of adrenal gland, unspecified; R91.8 Other nonspecific abnormal finding of lung field; F17.210 Nicotine dependence, cigarettes, uncomplicated; Z68.22 Body mass index [BMI] 22.0-22.9, adult; Z79.52 Long term (current) use of systemic steroids; Z85.118 Personal history of other malignant neoplasm of bronchus and lung
CPT/HCPCS: 36415; 71045; 80048; 80053; 80076; 81001; 83735; 83880; 84100; 84132; 84484; 85025; 85610; 94640; 94760; 96374; 96375; 99285; J1650; J2405; J2765; J2919; J3535; J7512; J7613; J7644

== ENCOUNTER 2024-10-10 13:18 | Emergency (ER) | payer OTHER, SELFPAY ==
[2024-10-10 14:05] LABS: Absolute Lymphocytes (CBC) 0.5 K/uL (0.7-4.9); Absolute Monocytes 0.2 K/uL (0.1-1.3); Absolute Neutrophil 8.1 K/uL (1.8-8.0); Basophils % 0.4 % (0-1.3); Eosinophils % 0.1 % (0-4.4); Hematocrit 43.2 % (39.6-49.0); Hemoglobin 14.1 g/dL (13.6-17.9); Lymphocytes % 5.8 % (15.3-44.8); MCH 29.2 pg (27.0-35.0); MCHC 32.6 g/dL (32.0-36.0); MCV 89.6 fL (80-100); MPV 9.1 fL (7.6-11.3); Monocytes % 2.1 % (3.3-12.3); Neutrophils % 91.6 % (41.7-73.7); Platelets 120 thou/uL (152-406); RBC Red Blood Cell Count 4.82 M/uL (4.33-5.43); Red Cell Distribution Width 16.4 % (12.1-15.2)
[2024-10-10 14:06] LABS: Blood Morphology Comment NOT SEEN (NOT SEEN); Platelet Estimate DECR; White Blood Cell Scan OK (OK)
[2024-10-10 14:24] LABS: Sqamous Epithelial None Seen /HPF (None Seen); Urine Bacteria None Seen /HPF (<20); Urine Bilirubin NEGATIVE (Negative); Urine Blood 1+ (Negative); Urine Clarity Clear (Clear); Urine Color Yellow (Yellow); Urine Culture Reflex Order NOT NEEDED; Urine Glucose NEGATIVE (Negative); Urine Ketones NEGATIVE (Negative); Urine Microscopic Reflex YN ORDER UMIC; Urine Mucus 1+ /HPF (None Seen); Urine Nitrite NEGATIVE (Negative); Urine Protein TRACE (Negative); Urine RBC <5 /HPF (None Seen); Urine Urobilinogen 1+ (Normal); Urine WBC <5 /HPF (<5); Urine pH 5.5 (5.0-7.0)
[2024-10-10] MEDS ORDERED: ALBUTEROL 2.5 MG/3 ML NEB SOL ONE (14:42)
[2024-10-10] MEDS ORDERED: IPRATROPIUM BROM 0.5MG/2.5ML ONE (14:42)
--- NOTE | 2024-10-10 15:27 | RAD REPORT ---
EXAM: Chest Single View HISTORY: DYSPNEA COMPARISON: 10/05/2024 FINDINGS: LUNGS/PLEURA: Ill-defined opacities present left lung base which are increased from prior. Mass in th e medial right upper lung is again noted. MEDIASTINUM: The mediastinal silhouette is within normal limits. CARDIAC: The cardiac silhouette is within normal limits. UPPER ABDOMEN: No significant abnormality. BONES: No acute fracture. LINES/TUBES/OTHER: N/A IMPRESSION: Mild increased opacities at the left lung base could reflect developing pneumonia. Grossly similar ma ss in the medial right upper lobe.
[2024-10-10 17:22] LABS: Albumin 2.6 g/dL (3.4-5.0); Albumin/Globulin Ratio 0.7 (1.1-1.8); Anion Gap 11.2 mEq/L (5.0-15.0); Bilirubin Direct 0.4 mg/dL (0-0.2); Bilirubin Indirect, Calculated 0.9 mg/dL (0.2-0.8); Bilirubin Total 1.3 mg/dL (0.2-1.0); Potassium 3.2 mEq/L (3.5-5.1); Protein, Total 6.6 g/dL (6.4-8.2); Troponin High Sensitivity 3.5 pg/mL (<58.9)
--- NOTE | 2024-10-10 17:37 | EDPHYS ---
Physician Documentation [facility] Name: Claudio Adames II Age: 63 yrs Sex: Male : 1960 Arrival Date: 10/10/2024 Time: 13:18 Bed 17 Private MD: ED Physician Jevon Walker HPI: 10/10 14:18 This 63 yrs old Male presents to ER via EMS with complaints of Shortness Of Breath. sp3 14:18 63-year-old male returns for recurrent shortness of breath episode. Patient was seen by sp3 me last week and transferred to [facility] [place] new diagnosis lung cancer and COPD exacerbation. Patient left there AMA and refused biopsy and was readmitted here few days later for COPD exacerbation, discharged now presents again for shortness of breath. He denies any chest pain, fever or any new aspects to his presentation. ROS otherwise negative.. Historical: - Allergies: 13:25 No Known Allergies; me1 - PMHx: 13:25 LUNG CANCER WITH METS ADRENAL GLANDS; Chronic obstructive lung disease; Pneumonia; me1 - PSHx: 13:25 Tonsillectomy; me1 - Immunization history:: Adult Immunizations unknown. - Infectious Disease History:: Denies. - Social history:: Smoking status: Patient/guardian denies using tobacco, Stopped _ months ago 0.5. ROS: 14:19 Constitutional: Negative for fever, chills, and weight loss, Eyes: Negative for injury, sp3 pain, redness, and discharge, ENT: Negative for injury, pain, and discharge, Neck: Negative for injury, pain, and swelling, Cardiovascular: Negative for chest pain, palpitations, and edema, Abdomen/GI: Negative for abdominal pain, nausea, vomiting, diarrhea, and constipation, Back: Negative for injury and pain, MS/Extremity: Negative for injury and deformity, Skin: Negative for injury, rash, and discoloration, Neuro: Negative for headache, weakness, numbness, tingling, and seizure, Psych: Negative for depression, anxiety, suicide ideation, homicidal ideation, and hallucinations, Allergy/Immunology: Negative for hives, rash, and allergies, Endocrine: Negative for neck swelling, polydipsia, polyuria, polyphagia, and marked weight changes, Hematologic/Lymphatic: Negative for swollen nodes, abnormal bleeding, and unusual bruising, 14:19 All other systems are negative, Exam: 14:19 Constitutional: This is a well developed, well nourished patient who is awake, alert, sp3 and in no acute distress. Head/Face: Normocephalic, atraumatic. ENT: Nares patent. No nasal discharge, no septal abnormalities noted. External auditory canals are clear. Oropharynx with no redness, swelling, or masses, exudates, or evidence of obstruction, uvula midline. Mucous membranes moist. Neck: Trachea midline, no thyromegaly or masses palpated, and no cervical lymphadenopathy. Supple, full range of motion without nuchal rigidity, or vertebral point tenderness. No Meningismus. Chest/axilla: Normal chest wall appearance and motion. Nontender with no deformity. No lesions are appreciated. Cardiovascular: Regular rate and rhythm with a normal S1 and S2. No gallops, murmurs, or rubs. Normal PMI, no JVD. No pulse deficits. Abdomen/GI: Soft, non-tender, with normal bowel sounds. No distension or tympany. No guarding or rebound. No evidence of tenderness throughout. Back: No spinal tenderness. No costovertebral tenderness. Full range of motion. Skin: Warm, dry with normal turgor. Normal color with no rashes, no lesions, and no evidence of cellulitis. MS/ Extremity: Pulses equal, no cyanosis. Neurovascular intact. Full, normal range of motion. Neuro: Awake and alert, GCS 15, oriented to person, place, time, and situation. Cranial nerves II-XII grossly intact. Motor strength 5/5 in all extremities. Sensory grossly intact. Cerebellar exam normal. Normal gait. Psych: Awake, alert, with orientation to person, place and time. Behavior, mood, and affect are within normal limits. 14:19 ECG was reviewed by the Attending Physician. EKG demonstrates sinus tachycardia at 100 bpm with normal intervals, normal QRS, normal axis, nonspecific diffuse ST's ST changes without evidence of acute ischemia. Vital Signs: 13:22 BP 114 / 72; Pulse 102; Resp 22; Temp 98.6; Pulse Ox 100% on 6 lpm Nebulizer Mask; me1 Weight 58.06 kg; Height 5 ft. 6 in. ; Pain 7/10; 14:00 BP 97 / 53; Pulse 98; Resp 23; Pulse Ox 97% on 4 lpm NC; me1 15:00 BP 108 / 55; Pulse 97; Resp 23; Pulse Ox 100% on 4 lpm NC; me1 16:00 BP 103 / 50; Pulse 98; Resp 26; Pulse Ox 100% on 4 lpm NC; me1 17:00 BP 105 / 62; Pulse 95; Resp 23; Pulse Ox 100% on 4 lpm NC; me1 18:00 BP 100 / 62; Pulse 91; Resp 23; Pulse Ox 99% on 4 lpm NC; me1 13:22 Body Mass Index 20.66 (58.06 kg, 167.64 cm) me1 13:22 Pain Scale: [place] [facility] [place]DM: 13:40 Medical Screening Exam initiated sp3 14:24 Data reviewed: vital signs, nurses notes, lab test result(s), EKG, radiologic studies. sp3 ED course: 63-year-old male with recurrent shortness of breath with ongoing symptoms of COPD and new pulmonary malignancy. We will treat with nebulizer and steroids and reassess.. 17:36 ED course: Patient improved. No admission indicated currently. I have urged him to get sp3 a biopsy performed. I will again give him follow-up to oncology.. 10/10 13:42 Order name: Basic Metabolic Panel; Complete Time: 17:24 sp3 10/10 13:42 Order name: CBC with Diff; Complete Time: 14:24 sp3 10/10 13:42 Order name: LFT's; Complete Time: 17:24 sp3 10/10 13:42 Order name: Magnesium; Complete Time: 17:24 sp3 10/10 13:42 Order name: NT PRO-BNP; Complete Time: 17:24 sp3 10/10 13:42 Order name: Troponin HS; Complete Time: 17:24 sp3 10/10 14:06 Order name: CBC Smear Scan; Complete Time: 14:24 EDMS 10/10 14:07 Order name: Urinalysis w/ reflexes; Complete Time: 14:24 nv1 10/10 13:42 Order name: XRAY Chest (1 view); Complete Time: 16:16 sp3 10/10 13:42 Order name: Cardiac monitoring; Complete Time: 16:40 sp3 10/10 13:42 Order name: EKG - Nurse/Tech; Complete Time: 16:40 sp3 10/10 13:42 Order name: IV Saline Lock; Complete Time: 13:53 sp3 10/10 13:42 Order name: Labs collected and sent; Complete Time: 13:53 sp3 10/10 13:42 Order name: O2 Per Protocol; Complete Time: 13:53 sp3 10/10 13:42 Order name: O2 Sat Monitoring; Complete Time: 13:53 sp3 Administered Medications: 14:44 Drug: DuoNeb Nebulize (3:1) (2.5 mg - 0.5 mg) 3 ml Nebulizer once Route: Nebulizer; me1 15:22 Follow up: Response: No adverse reaction; Wheezing diminished me1 14:45 Not Given (Per Dr Walker, [place] sol[place] [facility] [id number] mg IVP me1 once Disposition Summary: 10/10/24 17:37 Discharge Ordered Notes: Location: Home sp3 Condition: Stable sp3 Diagnosis - COPD exacerbation, new pulmonary malignancy sp3 Followup: sp3 - With: Private Physician - When: Upon discharge from the Emergency Department - Reason: Continuance of care Followup: sp3 - With: Karlee Sanchez MD - When: Upon discharge from the Emergency Department - Reason: Recheck today's complaints Discharge Instructions: - Discharge Summary Sheet sp3 - Lung Cancer sp3 - Living With COPD sp3 Forms: - Medication Reconciliation Form sp3 - Antibiotic Education sp3 - Prescription Opioid Use sp3 - Patient Portal Instructions sp3 - Leadership Thank You Letter sp3 Signatures: Dispatcher [employer] Jevon Blum MD MD sp3 Antonia Matthew, RN RN me1
--- NOTE | 2024-10-10 17:37 | ER ---
Nurse's Notes [facility] Name: Claudio Adames II Age: 63 yrs Sex: Male : 1960 Arrival Date: 10/10/2024 Time: 13:18 Bed 17 Private MD: Diagnosis: COPD exacerbation, new pulmonary malignancy Presentation: 10/10 13:22 Chief complaint: EMS states: Toned out for SOB, o2 sat on 3 LPM via NC on EMS arrival me1 was 89%. given 3:1 A\T\A neb tx, established an 18g to LAC and gave NS about 600 ml and solumedrol 125 mg IV. Patient reports he has had a mass on his lung in some imaging but hasnt seen an oncologist for confirmation of cancer. Coronavirus screen: Vaccine status: Patient reports being unvaccinated. Ebola Screen: No symptoms or risks identified at this time. Initial Sepsis Screen: Does the patient meet any 2 criteria? No. Patient's initial sepsis screen is negative. Does the patient have a suspected source of infection? No. Patient's initial sepsis screen is negative. Risk Assessment: Do you want to hurt yourself or someone else? Patient reports no desire to harm self or others. Onset of symptoms is unknown. 13:22 Method Of Arrival: EMS: [facility] me1 13:22 Acuity: ANTHONY 3 me1 13:28 Care prior to arrival: Medication(s) given: Albuterol Neb Atrovent Neb Normal saline me1 infusion, 500 mL, solumedrol 125mg IV initiated. 18 GA, in the left antecubital area, Med neb given. Oxygen administered. via a nebulizer mask. Triage Assessment: 13:25 General: Appears uncomfortable, ill, unkempt, well developed, Behavior is calm, me1 cooperative, appropriate for age. Pain: Complains of pain in head Pain does not radiate. Pain currently is 7 out of 10 on a pain scale. Quality of pain is described as aching, Pain began gradually, Is continuous. EENT: No signs and/or symptoms were reported regarding the EENT system. Neuro: Level of Consciousness is awake, alert, obeys commands, Oriented to person, place, time, situation, Appropriate for age. Cardiovascular: Patient's skin is warm and dry. Respiratory: Reports shortness of breath at rest on exertion Airway is patent Respiratory effort is even, unlabored, Respiratory pattern is regular, tachypnea Onset: The symptoms/episode began/occurred gradually, the patient has moderate shortness of breath. GI: No signs and/or symptoms were reported involving the gastrointestinal system. : No signs and/or symptoms were reported regarding the genitourinary system. Derm: Skin is intact, is fragile, Skin is normal. Musculoskeletal: No signs and/or symptoms reported regarding the musculoskeletal system. Historical: - Allergies: 13:25 No Known Allergies; me1 - PMHx: 13:25 LUNG CANCER WITH METS ADRENAL GLANDS; Chronic obstructive lung disease; Pneumonia; me1 - PSHx: 13:25 Tonsillectomy; me1 - Immunization history:: Adult Immunizations unknown. - Infectious Disease History:: Denies. - Social history:: Smoking status: Patient/guardian denies using tobacco, Stopped _ months ago 0.5. Screenin:29 [facility] ED Fall Risk Assessment (Adult) History of falling in the last 3 months, me1 including since admission No falls in past 3 months (0 pts) Confusion or Disorientation No (0 pts) Intoxicated or Sedated No (0 pts) Impaired Gait No (0 pts) Mobility Assist Device Used No (0 pt) Altered Elimination No (0 pt) Score/Fall Risk Level 0 - 2 = Low Risk Maintained a safe environment, Provided non-skid footwear, Hourly rounding (assess needs \T\ fall precautionary measures) done. Abuse screen: Denies threats or abuse. Nutritional screening: No deficits noted. Tuberculosis screening: No symptoms or risk factors identified. Assessment: 13:29 General: See triage assessment.. me1 18:02 Cardiovascular: Rhythm is regular. me1 18:02 Respiratory: Respiratory effort is even, unlabored, Respiratory pattern is regular, me1 symmetrical, Breath sounds are diminished bilaterally. in left posterior lower lobe and right posterior lower lobe. 18:03 Reassessment: Discharge delayed for to go get oxygen for transport home. me1 Vital Signs: 13:22 BP 114 / 72; Pulse 102; Resp 22; Temp 98.6; Pulse Ox 100% on 6 lpm Nebulizer Mask; me1 Weight 58.06 kg; Height 5 ft. 6 in. ; Pain 7/10; 14:00 BP 97 / 53; Pulse 98; Resp 23; Pulse Ox 97% on 4 lpm NC; me1 15:00 BP 108 / 55; Pulse 97; Resp 23; Pulse Ox 100% on 4 lpm NC; me1 16:00 BP 103 / 50; Pulse 98; Resp 26; Pulse Ox 100% on 4 lpm NC; me1 17:00 BP 105 / 62; Pulse 95; Resp 23; Pulse Ox 100% on 4 lpm NC; me1 18:00 BP 100 / 62; Pulse 91; Resp 23; Pulse Ox 99% on 4 lpm NC; me1 13:22 Body Mass Index 20.66 (58.06 kg, 167.64 cm) me1 13:22 Pain Scale: Adult nm1 ED Course: 13:21 Patient arrived in ED. me1 13:25 Triage completed. me1 13:25 Arm band placed on Patient placed in an exam room. me1 13:29 Jevon Walker MD is Attending Physician. sp3 13:29 Patient has correct armband on for positive identification. Bed in low position. Call nm1 light in reach. Side rails up X2. Provided Education on: POC. Verbalized understanding.. Client placed on continuous cardiac and pulse oximetry monitoring. NIBP monitoring applied. child day care teacher on. Pulse ox on. NIBP on. 13:29 No provider procedures requiring assistance completed. Maintain EMS IV. Dressing me1 intact. Good blood return noted. Site clean \T\ dry. Gauge \T\ site: 18g LAC. Flushed with 10 mL NS. 13:35 Antonia Matthew, RN is Primary Nurse. me1 13:53 Basic Metabolic Panel Sent. me1 13:53 CBC with Diff Sent. me1 13:53 LFT's Sent. me1 13:53 Magnesium Sent. me1 13:53 NT PRO-BNP Sent. me1 13:53 Troponin HS Sent. me1 13:53 Initial lab(s) drawn, by me, sent to lab. me1 14:08 Urinalysis w/ reflexes Sent. me1 14:08 Urine collected: clean catch specimen, tea colored. me1 15:04 XRAY Chest (1 view) In Process Unspecified. EDMS 16:40 EKG done, by ED staff, reviewed by Jevon Walker MD. me1 17:38 Karlee Sanchez MD is Referral Physician. sp3 18:40 IV discontinued, intact, bleeding controlled, No redness/swelling at site. Pressure me1 dressing applied. Administered Medications: 14:44 Drug: DuoNeb Nebulize (3:1) (2.5 mg - 0.5 mg) 3 ml Nebulizer once Route: Nebulizer; me1 15:22 Follow up: Response: No adverse reaction; Wheezing diminished me1 14:45 Not Given (Per Dr Walker, rec'josue solumedrol 125mg from EMS): [id number] mg IVP me1 once Medication: 13:29 VIS not applicable for this client. me1 Outcome: 17:37 Discharge ordered by MD. sp3 18:40 Discharged to home via wheelchair, with significant other, me1 18:40 Condition: stable 18:40 Discharge instructions given to patient, significant other, Instructed on discharge instructions, follow up and referral plans. Demonstrated understanding of instructions, follow-up care, 18:43 Patient left the ED. me1 Signatures: Dispatcher [employer] EDJevon Pat MD MD sp3 Antonia Matthew RN RN me1
[2024-10-10 21:10] VITALS: TEMP 98.6
[2024-10-10 21:16] VITALS: BP 100/62; O2SAT 99
== END 2024-10-10 18:43 | disposition home or self-care (01) ==
LOC: ER 13:18
DX: J44.1 Chronic obstructive pulmonary disease with (acute) exacerbation (principal); C34.91 Malignant neoplasm of unspecified part of right bronchus or lung
CPT/HCPCS: 36415; 71045; 80048; 80076; 81001; 83735; 83880; 84484; 85025; 99285; J7613; J7644

== ENCOUNTER 2024-10-13 19:08 | Emergency (ER) | payer SELFPAY ==
[2024-10-13 20:03] LABS: SARS-CoV-2 Antigen CONTROL BLUE LINE VIS/BG OK; SARS-CoV-2 Antigen Rapid Res Negative (Negative)
[2024-10-13 20:13] LABS: Hematocrit 45.9 % (39.6-49.0); Hemoglobin 15.1 g/dL (13.6-17.9); MCH 29.1 pg (27.0-35.0); MCHC 32.8 g/dL (32.0-36.0); MCV 88.6 fL (80-100); MPV 9.4 fL (7.6-11.3); Nucleated Red Blood Cells % 0.4 % (0-0); Platelets 144 thou/uL (152-406); RBC Red Blood Cell Count 5.17 M/uL (4.33-5.43); Red Cell Distribution Width 16.9 % (12.1-15.2)
[2024-10-13] MEDS ORDERED: CEFTRIAXONE 1000 MG/VIAL ONE (20:13)
[2024-10-13] MEDS ORDERED: METHYLPREDNISOLONE 125 MG INJ ONE (20:13)
[2024-10-13] MEDS ORDERED: NA CHLORIDE 0.9% 500 ML ONE (20:14)
--- NOTE | 2024-10-13 20:14 | RAD REPORT ---
EXAMINATION: ONE VIEW CHEST XR CLINICAL INDICATION: DYSPNEA TECHNIQUE: Frontal chest projection is submitted. Examination is limited by patient positioning and t echnique. COMPARISON: 10/10/2024 FINDINGS: Moderate patchy opacity in the left lung base is present likely representing pneumonia. The heart is upper limit of normal in size. No displaced fractures identified. IMPRESSION: Patchy opacity in the left lung base is present likely representing pneumonia.
[2024-10-13 20:19] LABS: PT Prothrombin Time 11.8 SECONDS (9.4-12.5); PTT, Activated Partial Thromb 30.8 SECONDS (24.3-36.9); Protime INR 1.06
[2024-10-13 20:28] LABS: AST/SGOT 33 U/L (15-37); Albumin/Globulin Ratio 0.3 (1.1-1.8); Alkaline Phosphatase 67 U/L (45-117); Anion Gap 10.9 mEq/L (5.0-15.0); BUN Blood Urea Nitrogen 27 mg/dL (7-18); Bicarbonate 27 mEq/L (21-32); Bilirubin Total 2.6 mg/dL (0.2-1.0); Glomerular Filtration Rate 54 ml/min (=/>90); Glucose Level 77 mg/dL (74-106); Potassium 3.9 mEq/L (3.5-5.1); Sodium Level 130 mEq/L (136-145)
[2024-10-13 20:29] LABS: ALT/SGPT < 14 U/L (16-61)
[2024-10-13 20:54] LABS: Band Neutrophils 25 % (0-1); Differential Total Cells Count 100; Lymphocytes 8 % (15-42); Metamyelocytes 3 % (0-0); Monocytes 7 % (0-10); Platelet Estimate DECR; Segmented Neutrophils 57 % (40-80)
[2024-10-13 20:55] LABS: Blood Gas Oxyhemoglobin 95.8 % (94-97); Blood Gas THB 13.9 g/dl (12-18); Blood O2 Saturation 98.4 % (92-98.5)
[2024-10-13 20:55] LABS: Blood Morphology Comment NOT SEEN (NOT SEEN)
[2024-10-13] MEDS ORDERED: ALBUTEROL 2.5 MG/3 ML NEB SOL ONE (21:14)
[2024-10-13] MEDS ORDERED: IPRATROPIUM BROM 0.5MG/2.5ML ONE (21:15)
[2024-10-13] MEDS ORDERED: AZITHROMYCIN 500 MG INJ IVPB ONE (21:21)
[2024-10-13] MEDS ORDERED: NA CHLORIDE 0.9% 1,000 ML ONE (21:22)
[2024-10-13] MEDS ORDERED: D5 0.9 NS 1,000 ML IV ONE (21:22)
[2024-10-13] MEDS ORDERED: NA CHLORIDE 0.9% 250 ML ONE ×2 (21:22→22:41)
--- NOTE | 2024-10-13 21:40 | ER ---
Nurse's Notes [facility] Name: Claudio Adames II Age: 64 yrs Sex: Male : 1960 Arrival Date: 10/13/2024 Time: 19:08 Bed 3 Private MD: Diagnosis: COPD/ Chronic obstructive pulmonary disease with (acute) exacerbation;Hyponatremia , hypoxemia , left lower lung pneumonia, ;Severe sepsis without septic shock Presentation: 10/13 19:21 Chief complaint: EMS states: Pt was found on 3L NC satting 53%. Was placed on 10L via jb4 NRB mask and came up into the 90's. Coronavirus screen: At this time, the client does not indicate any symptoms associated with coronavirus-19. Ebola Screen: No symptoms or risks identified at this time. Initial Sepsis Screen: Does the patient meet any 2 criteria? No. Patient's initial sepsis screen is negative. Does the patient have a suspected source of infection? No. Patient's initial sepsis screen is negative. Risk Assessment: Do you want to hurt yourself or someone else? Patient reports no desire to harm self or others. Onset of symptoms was October 13, 2024. Transition of care: patient was not received from another setting of care. 19:21 Method Of Arrival: EMS: [facility] jb4 19:21 Acuity: ANTHONY 2 jb4 Triage Assessment: 19:26 General: Appears in no apparent distress. distressed, Behavior is calm, cooperative, jb4 appropriate for age. Pain: Complains of pain in xiphoid area Pain radiates to left lateral anterior chest Pain currently is 6 out of 10 on a pain scale. Aggravated by increased activity. Neuro: Level of Consciousness is awake, alert, obeys commands, Oriented to person, place, time, situation. Cardiovascular: Patient's skin is warm and dry. Respiratory: Airway is patent Respiratory effort is labored, weak, Respiratory pattern is symmetrical, tachypnea. Derm: Skin is intact, Skin is pink, warm \T\ dry. Musculoskeletal: Circulation, motion, and sensation intact. Range of motion: intact in all extremities. Historical: - Allergies: 19:26 No Known Allergies; jb4 - PMHx: 19:26 Chronic obstructive lung disease; LUNG CANCER WITH METS ADRENAL GLANDS; Pneumonia; jb4 - PSHx: 19:26 Tonsillectomy; jb4 - Immunization history:: Adult Immunizations unknown. - Infectious Disease History:: Denies. - Social history:: Smoking status: Patient/guardian denies using tobacco, Stopped _ months ago 1. - Family history:: not pertinent. Screenin:00 [facility] ED Fall Risk Assessment (Adult) History of falling in the last 3 months, jb4 including since admission No falls in past 3 months (0 pts) Confusion or Disorientation No (0 pts) Intoxicated or Sedated No (0 pts) Impaired Gait No (0 pts) Mobility Assist Device Used No (0 pt) Altered Elimination No (0 pt) Score/Fall Risk Level 0 - 2 = Low Risk Oriented to surroundings, Maintained a safe environment. Abuse screen: Denies threats or abuse. Nutritional screening: No deficits noted. Tuberculosis screening: No symptoms or risk factors identified. Assessment: 20:00 Reassessment: Pt continues to have labored respirations and remains on 10L by NRB. jb4 Respirations are tachypneic. 21:00 Reassessment: No changes from previously documented assessment. jb4 22:18 General: gave report to yazmin SHETH at [facility]. al5 23:33 Reassessment: Pt now back on 3L NC. Report given to [facility]. Pt remains jb4 Tachypneic and respirations remain labored. Pt reports being able to breathe easier. Vital Signs: 19:21 BP 125 / 95; Pulse 112; Resp 40; Temp 97.7(O); Pulse Ox 98% on 10 lpm Non-rebreather jb4 mask; Weight 58.06 kg; Height 5 ft. 2 in. ; 21:00 BP 119 / 79; Pulse 102; Resp 28; Pulse Ox 96% on 10 lpm Non-rebreather mask; jb4 22:00 BP 108 / 66; Pulse 102; Resp 26; Pulse Ox 94% on Nebulizer Mask; jb4 23:00 BP 95 / 72; Pulse 103; Resp 26; Pulse Ox 97% on 3 lpm NC; jb4 19:21 Body Mass Index 23.41 (58.06 kg, 157.48 cm) jb4 Lenox Coma Score: 21:30 Eye Response: spontaneous(4). Motor Response: obeys commands(6). Verbal Response: sp4 oriented(5). Total: 15. ED Course: 19:15 Patient arrived in ED. bc6 19:21 Sriram Chew, RN is Primary Nurse. jb4 19:26 Triage completed. jb4 19:26 Arm band placed on right wrist. jb4 19:38 Influenza Screen (a \T\ B) Sent. jb4 19:38 SARS RAPID Sent. jb4 20:01 Chest Single View XRAY In Process Unspecified. EDMS 20:02 Karson Pabon MD is Attending Physician. sp4 20:04 Blood Culture Adult (2) Sent. jb4 20:04 CBC with Diff Sent. jb4 20:04 CMP Sent. jb4 20:04 Lactate w/ 2H reflex if indic. Sent. jb4 20:04 Protime (+inr) Sent. jb4 20:04 Ptt, Activated Sent. jb4 21:50 initiated transfer with [facility]. kmf 22:00 Only facility that has capabilities for pt is [facility] and they are currently kmf on divert. 22:00 Patient has correct armband on for positive identification. Bed in low position. Call jb4 light in reach. Side rails up X 1. Provided Education on: plan of care. 22:15 initiated transfer with [facility] ICU 8B - [address]. Accept[address] Dr. Menard M \T\ 2210. [facility] Admin approval by Nilsa Bliss \Prakash\ 2210. Nurse to nurse number [phone]. [facility] to transfer pt once nurse to nurse is complete. 22:48 called [facility] eta 15 mins. kmf 23:37 No provider procedures requiring assistance completed. Patient transferred, IV remains jb4 in place. Inserted saline lock: 18 gauge in left antecubital area, using aseptic technique. Blood collected. Administered Medications: 20:24 Drug: MethylPrednisoLONE IVP 125 mg IVP once Route: IVP; Site: right antecubital; jb4 20:24 Drug: NS 0.9% IV 500 ml IV at bolus once; to be given as a bolus over 30 minutes Route: jb4 IV; Rate: bolus; Site: right antecubital; 20:25 Drug: Rocephin IV 1 grams IV at bolus once; Given slow IV push per pharmacy jb4 instructions Route: IV; Rate: bolus; Site: right antecubital; 21:18 Drug: Albuterol Inhalation 2.5 mg Inhalation every 20 minutes x3 Route: Inhalation; jb4 21:18 Drug: Albuterol Inhalation 2.5 mg Inhalation every 20 minutes x3 Route: Inhalation; jb4 21:18 Drug: Albuterol Inhalation 2.5 mg Inhalation every 20 minutes x3 Route: Inhalation; jb4 21:18 Drug: Ipratropium Inhalation Aerosol 0.5 mg Inhalation once; Every 20 min for a total jb4 of 3 treatments x3 Route: Inhalation; 21:18 Drug: Ipratropium Inhalation Aerosol 0.5 mg Inhalation once; Every 20 min for a total jb4 of 3 treatments x3 Route: Inhalation; 21:18 Drug: Ipratropium Inhalation Aerosol 0.5 mg Inhalation once; Every 20 min for a total jb4 of 3 treatments x3 Route: Inhalation; 21:29 Drug: Zithromax IVPB 500 mg IVPB once over 1 hrs; mix in 250 mL NS Route: IVPB; Infused jb4 Over: 1 hrs; Site: right antecubital; 23:09 Follow up: Response: No adverse reaction; IV Status: Completed infusion; IV Intake: jb4 250ml 21:29 Drug: NS 0.9% IV 1000 ml IV at 1000 ml once; to be given as a bolus over 60 minutes jb4 Route: IV; Rate: 1000 ml; Site: right antecubital; 23:09 Follow up: Response: No adverse reaction; IV Status: Completed infusion; IV Intake: jb4 1000ml 23:29 Drug: D5-NS IV 1000 ml IV at 125 ml/hr continuous Route: IV; Rate: 125 ml/hr; Site: [facility] right antecubital; 23:30 Follow up: IV Status: Infusion continued upon transfer jb4 23:29 Drug: vancoMYCIN IVPB 1 grams IVPB once over 2 hrs Route: IVPB; Infused Over: 2 hrs; jb4 Site: right antecubital; 23:30 Follow up: IV Status: Infusion continued upon transfer jb4 Medication: 22:00 VIS not applicable for this client. jb4 Intake: 23:09 IV: 1000ml; Total: 1000ml. jb4 23:09 IV: 250ml; Total: 1250ml. jb4 Outcome: 21:40 ER care complete, transfer ordered by MD. moya 23:37 Transferred by ground EMS to [facility], Transfer form jb4 completed. X-rays sent w/ patient. 23:37 Condition: stable 23:37 Discharge instructions given to patient, family, Instructed on the need for transfer, Demonstrated understanding of instructions, 23:37 Patient left the ED. jb4 Addendum: 10/17/2024 08:13 Addendum: Culture Results: Positive blood culture. faxed culture reports to [facility] e b patient was moved from ICU to 10 D/ Elo Sheth is waiting for the report. Signatures: Dispatcher [employer] EDSriram Huynh, RN RN jb4 Sue Bhatia Breana 6 Karson Pabon MD MD sp4 [facility] Fidelia Joseph RN RN al5
--- NOTE | 2024-10-13 21:40 | EDPHYS ---
Physician Documentation [facility] Name: Claudio Adames II Age: 64 yrs Sex: Male : 1960 Arrival Date: 10/13/2024 Time: 19:08 Bed 3 Private MD: ED Physician Karson Pabon HPI: 10/13 20:03 This 64 yrs old Male presents to ER via EMS with complaints of dyspnea . sp4 21:30 64-year-old male with history of COPD tobacco use disorder and recently diagnosed with sp4 a right upper lung mass, presents with worsening shortness of breath by EMS associated with hypoxemia. EMS noticed oxygen saturation was in 50s. Patient was admitted here 10/06/2024 through 10/08/2024 for acute hypoxic respiratory failure, chronic COPD with exacerbation, 5.2 cm right upper lung mass, left adrenal mass, hypothyroidism, and tobacco use disorder. Patient was qualified for home oxygen and he was sent home with home oxygen. Patient was also prescribed short course of steroids and a Dulera inhaler. Patient's medications listed add prednisone 20 mg p.o. daily, Dulera inhaler, Pepcid daily, Synthroid 50 mcg daily albuterol inhaler as needed. . Historical: - Allergies: 19:26 No Known Allergies; jb4 - PMHx: 19:26 Chronic obstructive lung disease; LUNG CANCER WITH METS ADRENAL GLANDS; Pneumonia; jb4 - PSHx: 19:26 Tonsillectomy; jb4 - Immunization history:: Adult Immunizations unknown. - Infectious Disease History:: Denies. - Social history:: Smoking status: Patient/guardian denies using tobacco, Stopped _ months ago 1. - Family history:: not pertinent. ROS: 21:30 Constitutional: Negative for fever, chills, and weight loss, positive for shortness sp4 of breath, positive for cough, positive for tachypnea and respiratory difficulty 21:30 All other systems are negative, Exam: 21:30 Constitutional: Patient is a thin male, ill-appearing, generalized pallor, dyspnea and sp4 tachypnea on exam Head/Face: Normocephalic, atraumatic. Eyes: Pupils equal round and reactive to light, extra-ocular motions intact. Lids and lashes normal. Conjunctiva and sclera are not injected. Cornea within normal limits. Periorbital areas with no swelling, redness, or edema. ENT: Nares patent. No nasal discharge, no septal abnormalities noted. Tympanic membranes are normal and external auditory canals are clear. Oropharynx with no redness, swelling, or masses, exudates, or evidence of obstruction, uvula midline. Mucous membranes moist. Neck: Trachea midline, no thyromegaly or masses palpated, and no cervical lymphadenopathy. Supple, full range of motion without nuchal rigidity, or vertebral point tenderness. Chest/axilla: Normal chest wall appearance and motion. Nontender with no deformity. No lesions are appreciated. Cardiovascular: Regular rate and rhythm with a normal S1 and S2. No gallops, murmurs, or rubs. Normal PMI, no JVD. No pulse deficits. Respiratory: Lungs have equal breath sounds bilaterally, clear to auscultation and percussion. No rales, rhonchi or wheezes noted. No increased work of breathing, no retractions or nasal flaring. Abdomen/GI: Soft, with normal bowel sounds. No distension or tympany. No guarding or rebound. No evidence of tenderness throughout. Back: No spinal tenderness. No costovertebral tenderness. Skin: Warm, dry with normal turgor. Normal color with no rashes, no lesions, and no evidence of cellulitis. MS/ Extremity: Pulses equal, no cyanosis. Neurovascular intact. Full, normal range of motion. Neuro: Awake and alert, GCS 15, oriented to person, place, time, and situation. Cranial nerves II-XII grossly intact. Motor strength 5/5 in all extremities. Sensory grossly intact. Psych: Awake, alert, with orientation to person, place and time. Behavior, mood, and affect are within normal limits 21:34 ECG was reviewed by the Attending Physician. EKG at 1946 sinus tachycardia rate 105 sp4 otherwise normal Vital Signs: 19:21 BP 125 / 95; Pulse 112; Resp 40; Temp 97.7(O); Pulse Ox 98% on 10 lpm Non-rebreather jb4 mask; Weight 58.06 kg; Height 5 ft. 2 in. ; 21:00 BP 119 / 79; Pulse 102; Resp 28; Pulse Ox 96% on 10 lpm Non-rebreather mask; jb4 22:00 BP 108 / 66; Pulse 102; Resp 26; Pulse Ox 94% on Nebulizer Mask; jb4 23:00 BP 95 / 72; Pulse 103; Resp 26; Pulse Ox 97% on 3 lpm NC; jb4 19:21 Body Mass Index 23.41 (58.06 kg, 157.48 cm) jb4 [place] Coma Score: 21:30 Eye Response: spontaneous(4). Motor Response: obeys commands(6). Verbal Response: sp4 oriented(5). Total: 15. MDM: 20:09 Medical Screening Exam initiated sp4 21:40 Differential diagnosis: Bronchitis Pneumothorax Psychogenic pulmonary edema, Pulmonary sp4 Embolism Sepsis. 21:40 Antibiotic administration: Vancomycin, Rocephin, Zithromax . Data reviewed: vital sp4 signs, nurses notes, EMS record, old medical records, lab test result(s), radiologic studies, plain films. 22:20 ED course: EXAMINATION: ONE VIEW CHEST XR CLINICAL INDICATION: DYSPNEA TECHNIQUE: sp4 Frontal chest projection is submitted. Examination is limited by patient positioning and technique. COMPARISON: 10/10/2024 FINDINGS: Moderate patchy opacity in the left lung base is present likely representing pneumonia. The heart is upper limit of normal in size. No displaced fractures identified. IMPRESSION: Patchy opacity in the left lung base is present likely representing pneumonia. . 22:23 ED course: Sepsis reevaluation complete, blood pressure stable, secondary to sp4 hyponatremia also 30 mL/kg bolus was not given secondary to danger of volume overload. And also hyponatremia . ED course: Will have to provide careful saline hydration at 125 mL/h for hyponatremia. 10/13 19:27 Order name: Blood Culture Adult (2) ec2 10/13 19:27 Order name: CBC with Diff; Complete Time: 21:13 ec2 10/13 19:27 Order name: CMP; Complete Time: 20:45 ec2 10/13 19:27 Order name: Lactate w/ 2H reflex if indic.; Complete Time: 20:45 ec2 10/13 19:27 Order name: Protime (+inr); Complete Time: 20:45 ec2 10/13 19:27 Order name: Ptt, Activated; Complete Time: 20:45 ec2 10/13 19:27 Order name: Influenza Screen (a \T\ B); Complete Time: 20:45 ec2 10/13 19:27 Order name: SARS RAPID; Complete Time: 20:45 ec2 12/11 20:07 Order name: ABG; Complete Time: 21:13 sp4 10/13 20:33 Order name: Manual Differential; Complete Time: 21:13 EDMS 10/13 20:38 Order name: Ghost Lactate-NO COLLECT Timer EDMS 10/13 19:27 Order name: Chest Single View XRAY; Complete Time: 20:45 ec2 10/13 19:27 Order name: Accucheck ec2 10/13 19:27 Order name: Cardiac monitoring; Complete Time: 19:31 ec2 10/13 19:27 Order name: EKG - Nurse/Tech; Complete Time: 19:48 ec2 10/13 19:27 Order name: IV Saline Lock - Large Bore; Complete Time: 19:31 ec2 10/13 19:27 Order name: Labs collected and sent; Complete Time: 20:04 ec2 10/13 19:27 Order name: O2 Per Protocol; Complete Time: 19:30 ec2 10/13 19:27 Order name: O2 Sat Monitoring; Complete Time: 19:30 ec2 10/13 19:27 Order name: Vital Signs; Complete Time: 19:30 ec2 EC:46 Rate is 105 beats/min. Rhythm is regular, Sinus tachycardia. QRS [place] is Normal. ME sp4 interval is normal. QRS interval is normal. QT interval is normal. No Q waves. T waves are Normal. No ST changes noted. Clinical impression: No evidence of ischemia. Interpreted by me. Reviewed by me. Administered Medications: 20:24 Drug: MethylPrednisoLONE IVP 125 mg IVP once Route: IVP; Site: right antecubital; jb4 20:24 Drug: NS 0.9% IV 500 ml IV at bolus once; to be given as a bolus over 30 minutes Route: jb4 IV; Rate: bolus; Site: right antecubital; 20:25 Drug: Rocephin IV 1 grams IV at bolus once; Given slow IV push per pharmacy jb4 instructions Route: IV; Rate: bolus; Site: right antecubital; 21:18 Drug: Albuterol Inhalation 2.5 mg Inhalation every 20 minutes x3 Route: Inhalation; jb4 21:18 Drug: Albuterol Inhalation 2.5 mg Inhalation every 20 minutes x3 Route: Inhalation; jb4 21:18 Drug: Albuterol Inhalation 2.5 mg Inhalation every 20 minutes x3 Route: Inhalation; jb4 21:18 Drug: Ipratropium Inhalation Aerosol 0.5 mg Inhalation once; Every 20 min for a total jb4 of 3 treatments x3 Route: Inhalation; 21:18 Drug: Ipratropium Inhalation Aerosol 0.5 mg Inhalation once; Every 20 min for a total jb4 of 3 treatments x3 Route: Inhalation; 21:18 Drug: Ipratropium Inhalation Aerosol 0.5 mg Inhalation once; Every 20 min for a total jb4 of 3 treatments x3 Route: Inhalation; 21:29 Drug: Zithromax IVPB 500 mg IVPB once over 1 hrs; mix in 250 mL NS Route: IVPB; Infused jb4 Over: 1 hrs; Site: right antecubital; 23:09 Follow up: Response: No adverse reaction; IV Status: Completed infusion; IV Intake: jb4 250ml 21:29 Drug: NS 0.9% IV 1000 ml IV at 1000 ml once; to be given as a bolus over 60 minutes jb4 Route: IV; Rate: 1000 ml; Site: right antecubital; 23:09 Follow up: Response: No adverse reaction; IV Status: Completed infusion; IV Intake: jb4 1000ml 23:29 Drug: D5-NS IV 1000 ml IV at 125 ml/hr continuous Route: IV; Rate: 125 ml/hr; Site: [facility] right antecubital; 23:30 Follow up: IV Status: Infusion continued upon transfer jb4 23:29 Drug: vancoMYCIN IVPB 1 grams IVPB once over 2 hrs Route: IVPB; Infused Over: 2 hrs; jb4 Site: right antecubital; 23:30 Follow up: IV Status: Infusion continued upon transfer jb4 Disposition: 21:40 Critical Care:. sp4 Disposition Summary: 10/13/24 21:40 Transfer Ordered Notes: Reason: Higher level of care sp4 Condition: Stable sp4 Problem: new sp4 Symptoms: have improved sp4 Transfer Location: [facility](10/13/24 22:23) sp4 Accepting Physician: Accepting MD Danis Polanco [facility] (10/13/24 23:37) jb4 Diagnosis - COPD/ Chronic obstructive pulmonary disease with (acute) exacerbation sp4 - Hyponatremia , hypoxemia , left lower lung pneumonia, sp4 - Severe sepsis without septic shock sp4 Forms: - Medication Reconciliation Form sp4 - SBAR form sp4 Critical care time excluding procedures: 21:40 Critical care time: Bedside Care: 36 minutes, Consultation: 12 minutes, Family sp4 Intervention: 12 minutes. Total time: 60 minutes Signatures: Dispatcher [employer] Sriram Hartmann, RN RN jb4 Karson Pabon MD MD sp4 Chris Chris MD MD ec2 Corrections: (The following items were deleted from the chart) 22:23 21:40 Accepting MD moya sp4 22:23 21:40 [facility] sp4 sp4 23:37 22:23 Accepting MD Danis Polanco [facility] sp4 jb4
[2024-10-13] MEDS ORDERED: VANCOMYCIN 1 GM/VIAL ONE (22:40)
[2024-10-13 23:51] VITALS: TEMP 97.7
[2024-10-14 00:15] VITALS: BP 95/72; O2SAT 97
--- NOTE | 2024-10-15 15:49 | EKG ---
Test Date: 2024-10-13 Test Time: 19:46:08 Layout Technician: DWIGHT MEASUREMENT RESULTS: Intervals: Rate: 105 OR: 138 QRSD: 78 QT: 302 QTc: 399 Levering: P: 83 OR: 138 QRS: 75 T: 83 INTERPRETIVE STATEMENTS: Sinus tachycardia Otherwise normal ECG Compared to ECG 10/10/2024 13:59:29 ST (T wave) deviation no longer present Electronically Signed On 10-15-24 15:46:54 GUEST RELATION OFFICER by Quang Mckenzie
== END 2024-10-13 23:37 | disposition short-term general hospital (02) ==
LOC: ER 19:08
DX: J44.1 Chronic obstructive pulmonary disease with (acute) exacerbation (principal); J18.9 Pneumonia, unspecified organism; R65.20 Severe sepsis without septic shock; A41.9 Sepsis, unspecified organism; E87.1 Hypo-osmolality and hyponatremia; Z11.52 Encounter for screening for COVID-19
CPT/HCPCS: 36415; 36600; 71045; 80053; 82805; 83605; 85025; 85610; 85730; 87040; 87077; 87186; 87205; 87804; 87811; 93005; 96365; 96366; 96375; 99285; J0696; J2919; J7030; J7040; J7042; J7050; J7613; J7644

== ENCOUNTER 2025-02-08 10:55 | Day surgery (SDC) | payer OTHER ==
[2025-02-08 12:13] LABS: Protime INR 1.15
[2025-02-08] MEDS ORDERED: NA CHLORIDE 0.9% 1,000 ML ONE (12:23)
[2025-02-08] MEDS ORDERED: FLUMAZENIL 0.1 MG/ML (5 mL VIAL) IV ONE (12:40)
[2025-02-08] MEDS ORDERED: NALOXONE HCL 2 MG/2 ML VIAL ONE (12:41)
[2025-02-08] MEDS ORDERED: MIDAZOLAM HCL 2 MG/2 ML INJ ONE (12:41)
[2025-02-08] MEDS ORDERED: FENTANYL CITR 100 MCG/2 ML ONE (12:41)
[2025-02-08 17:06] VITALS: BP 117/67; TEMP 98.6; O2SAT 100
--- NOTE | 2025-02-09 10:29 | RAD REPORT ---
PROCEDURE: CT-GUIDED BIOPSY Abdomen Rp Biopsy Percut Pre-procedure diagnosis: Left adrenal mass Post-procedure diagnosis: Same as above. COMPLICATIONS: No immediate complications. IMPRESSION: CT-guided biopsy of left adrenal mass PROCEDURE DETAILS: Consent: Informed consent for the procedure including risks, benefits and alternatives was obtained a nd time-out was performed prior to the procedure. Sedation: Moderate sedation (conscious sedation) Administered by: Nurse, or other independent traine d observer, with level of consciousness and vital signs continuously monitored. Total sedation administered: 1 mL Versed and 50 mcg Fentanyl. Total intra-service sedation time: 30 minutes. Biopsy: Local anesthesia was administered. Under CT guidance, the biopsy needle was advanced to the t arget and biopsy was performed. [id number]. Number of specimens: 4 x 18 gauge core ssamples Additional sampling description: None. Preliminary assessment of sample adequacy: Not applicable. The biopsy needle was removed and a sterile dressing was applied. Post-biopsy imaging findings: No immediate complications seen. Additional Details: Equipment details: 18 gauge core sample device Estimated blood loss: Less than 10 mL.
== END 2025-02-08 16:13 | disposition home or self-care (01) ==
LOC: DS 10:55
PROVIDERS: ATTEND Internal Medicine Sleep Medicine
PROC: 0GB23ZX Excision of Left Adrenal Gland, Percutaneous Approach, Diagnostic (ICD-10-PCS; principal; 2025-02-08)
DX: C79.72 Secondary malignant neoplasm of left adrenal gland (principal)
CPT/HCPCS: 77012; 36415; 85610; 88305; 85730; 49180; J2250; J3010; J7030; J2310

== ENCOUNTER 2025-02-16 17:25 | Emergency (ER) | payer OTHER ==
[2025-02-16 18:14] LABS: Absolute Basophils 0.1 K/uL (0-0.5); Absolute Eosinophils 1.1 K/uL (0-0.5); Absolute Lymphocytes (CBC) 1.1 K/uL (0.7-4.9); Absolute Monocytes 0.5 K/uL (0.1-1.3); Absolute Neutrophil 5.3 K/uL (1.8-8.0); Basophils % 0.9 % (0-1.3); Eosinophils % 14.1 % (0-4.4); Hematocrit 34.4 % (39.6-49.0); Hemoglobin 11.5 g/dL (13.6-17.9); Lymphocytes % 13.5 % (15.3-44.8); MCH 27.5 pg (27.0-35.0); MCHC 33.5 g/dL (32.0-36.0); MCV 82.1 fL (80-100); Monocytes % 6.3 % (3.3-12.3); Neutrophils % 65.2 % (41.7-73.7); Nucleated Red Blood Cells % 0.2 % (0-0); Platelets 168 thou/uL (152-406); RBC Red Blood Cell Count 4.19 M/uL (4.33-5.43); Red Cell Distribution Width 16.9 % (12.1-15.2)
[2025-02-16 18:19] LABS: PT Prothrombin Time 14.1 SECONDS (10-13.0); Protime INR 1.25
[2025-02-16] MEDS ORDERED: dexAMETHasone 10 MG/ML VIAL ONE (18:22)
--- NOTE | 2025-02-16 18:32 | ER ---
Nurse's Notes [facility] Name: Claudio Adames II Age: 64 yrs Sex: Male : 1960 Arrival Date: 02/16/2025 Time: 17:25 Bed 5 Private MD: Diagnosis: brain mass Presentation: 02/16 17:44 Chief complaint: Patient states: was told to come to ER for eval , had MRI of brain iw done, hx of lung cancer. Coronavirus screen: At this time, the client does not indicate any symptoms associated with coronavirus-19. Ebola Screen: No symptoms or risks identified at this time. Initial Sepsis Screen: Does the patient meet any 2 criteria? No. Patient's initial sepsis screen is negative. Does the patient have a suspected source of infection? No. Patient's initial sepsis screen is negative. Risk Assessment: Do you want to hurt yourself or someone else? Patient reports no desire to harm self or others. 17:44 Method Of Arrival: Wheelchair iw 17:44 Acuity: ANTHONY 2 iw 17:48 Onset of symptoms was February 16, 2025. iw Triage Assessment: 17:45 General: Appears in no apparent distress. comfortable, Behavior is calm, cooperative, bp appropriate for age. Pain: Denies pain. EENT: No deficits noted. Neuro: Level of Consciousness is awake, alert, obeys commands, Oriented to Appropriate for age. Cardiovascular: Rhythm is sinus rhythm. Respiratory: No deficits noted. GI: No signs and/or symptoms were reported involving the gastrointestinal system. : No signs and/or symptoms were reported regarding the genitourinary system. Derm: No deficits noted. Musculoskeletal: No deficits noted. Historical: - Allergies: 17:47 Erythromycin (Upset stomach); iw - PMHx: 17:46 Chronic obstructive lung disease; LUNG CANCER WITH METS ADRENAL GLANDS; Pneumonia; iw - PSHx: 17:46 Tonsillectomy; iw - Immunization history:: Adult Immunizations up to date. - Infectious Disease History:: Denies. - Social history:: Smoking status: Patient reports the use of cigarette tobacco products, unknown amount. Screenin:45 [facility] ED Fall Risk Assessment (Adult) History of falling in the last 3 months, bp including since admission No falls in past 3 months (0 pts) Confusion or Disorientation No (0 pts) Intoxicated or Sedated No (0 pts) Impaired Gait No (0 pts) Mobility Assist Device Used No (0 pt) Altered Elimination No (0 pt) Score/Fall Risk Level 0 - 2 = Low Risk Oriented to surroundings. Abuse screen: Denies threats or abuse. Denies injuries from another. Nutritional screening: No deficits noted. Tuberculosis screening: No symptoms or risk factors identified. Assessment: 17:45 General: Appears in no apparent distress. comfortable, Behavior is calm, cooperative, bp appropriate for age. 19:30 Reassessment: REPORT CALLED TO MERYL ZARAGOZA. dd2 21:21 Reassessment: Patient appears in no apparent distress at this time. No changes from lg3 previously documented assessment. Patient and/or family updated on plan of care and expected duration. Pain level reassessed. Patient is alert, oriented x 3, equal unlabored respirations, skin warm/dry/pink. Vital Signs: 17:48 BP 138 / 74; iw 17:48 Pulse 81; Resp 18; Pulse Ox 98% ; iw 19:15 BP 92 / 67; Pulse 73; Resp 16; Pulse Ox 99% on R/A; dd2 21:00 BP 102 / 68; Pulse 75; Resp 16; Pulse Ox 99% ; lg3 ED Course: 17:33 Patient arrived in ED. iw 17:33 Barney Connelly MD is Attending Physician. jr11 17:41 Rehan House, RN is Primary Nurse. bp 17:45 Arm band placed on. bp 17:45 Patient has correct armband on for positive identification. bp 17:46 Triage completed. iw 18:04 Initial lab(s) drawn, by co, sent to lab. Inserted saline lock: 22 gauge in right bp forearm, using aseptic technique. Blood collected. Flushed with 10 mL NS. 18:15 called [facility] for transfer. Sue. sp 18:44 Accepted pt to [facility] will call back with approval. sp 18:[address] Kristie Greer accepted pt to [facility] 1853 Sue Maldonado admin approval sp to Bed # 1130 report number [phone]. 20:13 Primary Nurse role handed off by Rehan House, RN rv1 21:21 No provider procedures requiring assistance completed. Patient transferred, IV remains lg3 in place. Administered Medications: 18:15 Drug: Dexamethasone IVP 10 mg IVP once; (not to exceed 40 mg) Route: IVP; Site: right bp forearm; 19:00 Follow up: Response: No adverse reaction; Marked relief of symptoms lg3 Medication: 17:45 VIS not applicable for this client. bp Outcome: 18:31 ER care complete, transfer ordered by . michelle 21:21 Transferred by ground EMS to [facility], Transfer form completed. lg3 X-rays sent w/ patient. 21:21 Condition: stable 21:21 Instructed on the need for transfer, 21:24 Patient left the ED. lg3 Signatures: Judith Cuellar Irene, RN MERYL Rehan House RN RN Rachel Rivera RN RN lg3 Barney Connelly MD MD jr11 Nisha Atkinson rv1 CAROL MEJIAS RN RN dd2
--- NOTE | 2025-02-16 18:32 | EDPHYS ---
Physician Documentation [facility] Name: Claudio Adames II Age: 64 yrs Sex: Male : 1960 Arrival Date: 02/16/2025 Time: 17:25 Bed 5 Private MD: ED Physician Barney Connelly HPI: 02/16 18:05 Chief Complaint: Evaluation for spread of cancer to the brain. History of Present jr11 Illness: The patient was referred to the emergency department by their oncologist due to concerns about potential cancer spread to the brain. The primary cancer was initially identified in the right lung and later noted to have metastasized to the adrenal gland and spine. Recent MRI results indicated possible brain involvement. The patient has not been on chemotherapy and recently underwent a biopsy, the results of which are pending. The patient reported taking Gabapentin, which was increased from 300 mg to 400 mg, leading to dizziness earlier today. The patient is also experiencing significant back pain. There are no reported headaches, vomiting, or other neurological symptoms directly suggesting brain metastasis until today. Review of Systems: - Neurological: Reports dizziness after increasing Gabapentin dosage. - Musculoskeletal: Reports significant back pain. ROS otherwise negative. . Historical: - Allergies: 17:47 Erythromycin (Upset stomach); iw - PMHx: 17:46 Chronic obstructive lung disease; LUNG CANCER WITH METS ADRENAL GLANDS; Pneumonia; iw - PSHx: 17:46 Tonsillectomy; iw - Immunization history:: Adult Immunizations up to date. - Infectious Disease History:: Denies. - Social history:: Smoking status: Patient reports the use of cigarette tobacco products, unknown amount. Exam: 18:05 Constitutional: This is a well developed, well nourished patient who is awake, alert, jr11 and in no acute distress. Head/Face: Normocephalic, atraumatic. Eyes: Extra-ocular motions intact. Lids and lashes normal. Conjunctiva and sclera are non-icteric and not injected. Cornea within normal limits. Periorbital areas with no swelling, redness, or edema. ENT: Nares patent. No nasal discharge, no septal abnormalities noted. Oropharynx with no redness, swelling, or masses, exudates, or evidence of obstruction, uvula midline. Mucous membranes moist. Chest/axilla: Normal chest wall appearance and motion. Nontender with no deformity. No lesions are appreciated. Cardiovascular: Regular rate and rhythm with a normal S1 and S2. No gallops, murmurs, or rubs. Normal PMI, no JVD. No pulse deficits. Respiratory: Lungs have equal breath sounds bilaterally, clear to auscultation and percussion. No rales, rhonchi or wheezes noted. No increased work of breathing, no retractions or nasal flaring. Abdomen/GI: Soft, non-tender, with normal bowel sounds. No distension or tympany. No guarding or rebound. No evidence of tenderness throughout. Back: No spinal tenderness. No costovertebral tenderness. Full range of motion. Skin: Warm, dry with normal turgor. Normal color with no rashes, no lesions, and no evidence of cellulitis. MS/ Extremity: Pulses equal, no cyanosis. Neurovascular intact. Full, normal range of motion. Neuro: Awake and alert, GCS 15, oriented to person, place, time, and situation. No gross motor or sensory deficits. Vital Signs: 17:48 BP 138 / 74; iw 17:48 Pulse 81; Resp 18; Pulse Ox 98% ; iw 19:15 BP 92 / 67; Pulse 73; Resp 16; Pulse Ox 99% on R/A; dd2 21:00 BP 102 / 68; Pulse 75; Resp 16; Pulse Ox 99% ; lg3 MDM: 17:36 Medical Screening Exam initiated jr11 18:05 Differential diagnosis: Medical Decision Making: Given the patient's history of [facility] metastatic cancer with potential brain involvement, the differential diagnosis includes brain metastasis, medication side effects (Gabapentin-induced dizziness), spinal metastasis causing back pain, and less likely but life-threatening conditions such as increased intracranial pressure or spinal cord compression. The plan involves transferring the patient to a medical center with neurosurgical capabilities for further evaluation and management. The patient requires medication to manage swelling and pressure in the brain, and further assessment by a brain surgeon is necessary. Plan: - Transfer the patient to the medical center in [place] for neurosurgical evaluation. - Initiate medication to reduce brain swelling. - Perform blood work prior to transfer. - Educate the patient and family about the need for specialized care and the potential implications of brain metastasis. . 18:30 ED course: Dr Martinez accepted [facility]. [facility] 02/16 17:49 Order name: CBC with Diff; Complete Time: 18:28 [facility] 02/16 17:49 Order name: CMP; Complete Time: 18:45 11 02/16 17:49 Order name: PT-INR; Complete Time: 18:28 02/16 17:49 Order name: IV Saline Lock; Complete Time: 18:04 11 02/16 17:49 Order name: Labs collected and sent; Complete Time: 18:04 Administered Medications: 18:15 Drug: Dexamethasone IVP 10 mg IVP once; (not to exceed 40 mg) Route: IVP; Site: right bp forearm; 19:00 Follow up: Response: No adverse reaction; Marked relief of symptoms lg3 Disposition Summary: 02/16/25 18:31 Transfer Ordered Notes: Transfer Location: Other [facility] 11 Reason: Higher level of care jr11 Condition: Stable jr11 Problem: new jr11 Symptoms: are unchanged jr11 Accepting Physician: Juan(02/16/25 21:24) lg3 Diagnosis - brain mass Forms: - Medication Reconciliation Form 11 - SBAR form 11 Signatures: Dispatcher [employer] EDPolly Buitrago RN RN iw Peltier, Brian, RN RN bp Able, Lacie, RN RN lg3 Barney Connelly MD MD 11 Corrections: (The following items were deleted from the chart) 17:49 17:49 CBC+H.LAB.BRZ ordered. EDMS EDMS 17:49 17:49 COMPREHENSIVE METABOLIC PANEL+C.LAB.BRZ ordered. EDMS EDMS 17:49 17:49 PROTIME (+INR)+COAG.LAB.BRZ ordered. EDMS EDMS 21:24 18:31 Juan [facility] lg3
[2025-02-16 18:33] LABS: AST/SGOT 18 U/L (15-37); Albumin/Globulin Ratio 0.6 (1.1-1.8); Alkaline Phosphatase 72 U/L (45-117); Anion Gap 10.4 mEq/L (5.0-15.0); BUN Blood Urea Nitrogen 14 mg/dL (7-18); Bicarbonate 27 mEq/L (21-32); Bilirubin Total 0.5 mg/dL (0.2-1.0); Globulin 4.7 g/dL (2.3-3.5); Glomerular Filtration Rate 64 ml/min (=/>90); Glucose Level 103 mg/dL (74-106); Potassium 3.4 mEq/L (3.5-5.1); Protein, Total 7.7 g/dL (6.4-8.2); Sodium Level 135 mEq/L (136-145)
[2025-02-16 18:43] LABS: ALT/SGPT < 14 U/L (16-61)
[2025-02-16 21:58] VITALS: BP 102/68; O2SAT 99
== END 2025-02-16 21:24 | disposition short-term general hospital (02) ==
LOC: ER 17:25
DX: G93.9 Disorder of brain, unspecified (principal); Z85.118 Personal history of other malignant neoplasm of bronchus and lung; Z85.89 Personal history of malignant neoplasm of other organs and systems; M54.9 Dorsalgia, unspecified; Z72.0 Tobacco use
CPT/HCPCS: 85025; 36415; 85610; 80053; J1100